=== PATIENT | male | born 1955 | race Caucasian/White ===

== ENCOUNTER → 2021-07-10 07:47 | Outpatient (CLI) | payer MEDICARE, SELFPAY ==
--- NOTE | ~2021-07-10 | US_ITS ---
EXAMINATION: US aorta [facility] DATE: 07/10/2021 08:07 INDICATION: Encounter for screening for cardiovascular disorder is good vascular risk factors of diab etes, hypertension and prior smoking. TECHNIQUE: Grayscale, color Doppler, and pulsed Doppler images of the aorta and common iliac arteries were obtained. COMPARISON: None. FINDINGS: The proximal aorta measures 2.1 cm in maximal AP diameter. The mid aorta measures 1.7 cm. The distal aorta measures 1.6 cm. The right common iliac artery measures 1.1 cm. The left common iliac artery me asures 1.2 cm. IMPRESSION: 1. Normal caliber abdominal aorta. Reviewed, dictated and finalized at location A. 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
== END ==
PROVIDERS: PCP Family Medicine; Visit Provider Family Medicine
DX: Z13.6 Encounter for screening for cardiovascular disorders (principal); F17.210 Nicotine dependence, cigarettes, uncomplicated
CPT/HCPCS: 76706

== ENCOUNTER → 2021-07-15 11:14 | Outpatient (CLI) | payer MEDICARE, SELFPAY ==
--- NOTE | ~2021-07-15 | CT_ITS ---
EXAMINATION: CT lung screening DATE: 07/15/2021 11:32 INDICATION: Personal history of nicotine dependence, prior smoker with 40 pack year history TECHNIQUE: Computed tomography (CT) of the chest was performed without intravenous contrast. The dose -length product (DLP) was 73.82 mGy-cm. Automated exposure control and iterative reconstruction techn ique were employed. COMPARISON: None FINDINGS: There is mild emphysema. No suspicious pulmonary nodule is identified. The lungs are free o f acute opacities. There is no pleural effusion or pneumothorax. Bilateral gynecomastia is noted. No pathologically enlarged thoracic lymph nodes are identified. The heart size is normal. There is calci fied coronary artery atherosclerosis. There is mild thoracic spondylosis. IMPRESSION: 1. Lung-RADS category 1: Negative. Continue annual screening with noncontrast low-dose chest CT in 12 months. Reviewed, dictated and finalized at location A. 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 Lung-RADS category 1: Negative. Continue annual screening with noncontrast l ow-dose chest CT in 12 months.
== END ==
PROVIDERS: PCP Family Medicine; Visit Provider Family Medicine
DX: Z12.2 Encounter for screening for malignant neoplasm of respiratory organs (principal); Z87.891 Personal history of nicotine dependence
CPT/HCPCS: 71271

== ENCOUNTER 2022-02-10 13:21 | Outpatient (CLI) | payer MEDICARE, SELFPAY ==
[2022-02-10 19:00] LABS: Anion Gap 10 mmol/L (8-16); Blood Urea Nitrogen 20 mg/dL (9-20); Carbon Dioxide 27 mmol/L (22-30); Chloride 102 mmol/L (98-107); Estimated Glomerular Filt Rate > 60; Glucose 166 mg/dL (65-110); Sodium 139 mmol/L (137-145)
== END 2022-02-10 13:22 | disposition home or self-care (01) ==
LOC: ANHGOSHLAB 13:24
PROVIDERS: PCP Family Medicine; Visit Provider Family Medicine
DX: E87.5 Hyperkalemia (principal)
CPT/HCPCS: 36415; 80048

== ENCOUNTER 2022-06-02 14:41 | Outpatient (CLI) | payer MEDICARE, SELFPAY ==
[2022-06-02 20:19] LABS: Hemoglobin A1C 6.4 % (<5.7)
[2022-06-02 21:45] LABS: Alanine Aminotransferase 19 U/L (6-50); Albumin Level 4.6 g/dL (3.5-5.1); Alkaline Phosphatase 58 U/L (38-126); Anion Gap 3 mmol/L (8-16); Aspartate Amino Transferase 33 U/L (17-59); Bilirubin,Total 0.4 mg/dL (0.2-1.3); Blood Urea Nitrogen 28 mg/dL (9-20); Calcium 9.4 mg/dL (8.4-10.2); Carbon Dioxide 31 mmol/L (22-30); Chloride 101 mmol/L (98-107); Estimated Glomerular Filt Rate > 60; Glucose 127 mg/dL (65-110); Potassium 4.5 mmol/L (3.4-5.0); Sodium 135 mmol/L (137-145)
== END 2022-06-02 14:42 | disposition home or self-care (01) ==
LOC: ANHGOSHLAB 14:43
PROVIDERS: PCP Family Medicine; Visit Provider Family Medicine
DX: E11.9 Type 2 diabetes mellitus without complications (principal); I10 Essential (primary) hypertension
CPT/HCPCS: 36415; 80053; 83036

== ENCOUNTER → 2023-03-05 10:11 | Outpatient (CLI) | payer MEDICARE, SELFPAY ==
--- NOTE | ~2023-03-05 | CT_ITS ---
CT Scan of the Chest without Contrast: Clinical Indication: Lung cancer screening, personal history of nicotine dependence Technique: Contiguous sections were acquired throughout the chest without intravenous contrast. Dose reduction technique was used on this scan by utilizing automated exposure control and iterative recon struction technique. The dose-length product (DLP) was 67.88 mGy-cm. COMPARISON: 07/15/2021 Findings: There is no evidence of any significant mediastinal, hilar or axillary lymphadenopathy. The mediastin al soft tissues appear normal. There is no evidence of pleural or pericardial effusion. The lungs are clear. No pulmonary nodules or infiltrates are noted. Images through the upper abdomen reveal no abnormalities. Impression: Lung RADS 1: Negative. 12 month follow-up screening CT advised. Reviewed, dictated and finalized at location . Impression: Lung RADS 1: Negative. 12 month follow-up screening CT advised.
== END ==
PROVIDERS: PCP Family Medicine; Visit Provider Family Medicine
DX: Z12.2 Encounter for screening for malignant neoplasm of respiratory organs (principal); Z87.891 Personal history of nicotine dependence
CPT/HCPCS: 71271

== ENCOUNTER 2023-03-09 13:19 | Outpatient (CLI) | payer MEDICARE, SELFPAY ==
[2023-03-09 18:45] LABS: Alanine Aminotransferase 20 U/L (6-50); Albumin Level 4.3 g/dL (3.5-5.1); Alkaline Phosphatase 56 U/L (38-126); Anion Gap 6 mmol/L (8-16); Aspartate Amino Transferase 27 U/L (17-59); Bilirubin,Total 0.5 mg/dL (0.2-1.3); Blood Urea Nitrogen 27 mg/dL (9-20); Calcium 9.4 mg/dL (8.4-10.2); Carbon Dioxide 31 mmol/L (22-30); Chloride 94 mmol/L (98-107); Estimated Glomerular Filt Rate > 60; Glucose 217 mg/dL (65-110); Sodium 131 mmol/L (137-145)
== END 2023-03-09 13:20 | disposition home or self-care (01) ==
LOC: ANHGOSHLAB 13:21
PROVIDERS: PCP Family Medicine; Visit Provider Family Medicine
DX: E78.5 Hyperlipidemia, unspecified (principal); I10 Essential (primary) hypertension; Z79.899 Other long term (current) drug therapy
CPT/HCPCS: 36415; 80053

== ENCOUNTER 2023-07-29 13:21 | Outpatient (CLI) | payer MEDICARE, SELFPAY ==
[2023-07-29 16:07] LABS: Alanine Aminotransferase 19 U/L (6-50); Albumin Level 4.7 g/dL (3.5-5.1); Alkaline Phosphatase 72 U/L (38-126); Anion Gap 7 mmol/L (8-16); Aspartate Amino Transferase 38 U/L (17-59); Bilirubin,Total 0.5 mg/dL (0.2-1.3); Blood Urea Nitrogen 25 mg/dL (9-20); Calcium 9.5 mg/dL (8.4-10.2); Carbon Dioxide 27 mmol/L (22-30); Chloride 101 mmol/L (98-107); Estimated Glomerular Filt Rate > 60; Glucose 123 mg/dL (65-110); Potassium 4.5 mmol/L (3.4-5.0); Sodium 135 mmol/L (137-145)
[2023-07-29 16:45] LABS: Hemoglobin A1C 6.1 % (<5.7)
== END 2023-07-29 13:22 | disposition home or self-care (01) ==
LOC: ANHGOSHLAB 13:22
PROVIDERS: PCP Family Medicine; Visit Provider Family Medicine
DX: I10 Essential (primary) hypertension (principal); E11.9 Type 2 diabetes mellitus without complications
CPT/HCPCS: 36415; 80053; 83036

== ENCOUNTER 2023-11-17 11:31 | Outpatient (CLI) | payer MEDICARE, SELFPAY ==
--- NOTE | ~2023-11-17 | MR_ITS ---
EXAMINATION: MR lumbar spine wo con DATE: 11/17/2023 12:15 INDICATION: Other specified dorsopathies, lumbar region. Left leg and buttock pain. TECHNIQUE: Magnetic resonance imaging (MRI) of the lumbar spine was performed without intravenous con trast. Sequences included sagittal T2-weighted FSE, sagittal T2-weighted FS FSE, sagittal T1-weighted FSE, and axial T2-weighted FSE. COMPARISON: None FINDINGS: There is 8 degrees levocurvature of lumbar spine. There is 3 mm anterolisthesis of L4 on L5 . There is mild chronic anterior wedging of L1 vertebral body. There are Schmorl's nodes at multiple levels. There is mildly decreased disc height at L1-L2, L2-L3, L3-L4, and L4-L5 and moderately decrea sed disc height at L5-S1. Osseous central spinal canal is developmentally small. The distal spinal co rd signal intensity is normal. The conus medullaris is at L1. The following disc levels are specifica lly discussed: L1-L2: The disc is bulging. There is mild bilateral facet joint osteoarthritis. There is mild bilater al neural foraminal stenosis. There is mild central canal stenosis. L2-L3: The disc is bulging. There is moderate bilateral facet joint osteoarthritis. There is mild corey ateral neural foraminal stenosis. There is mild central canal stenosis. L3-L4: The disc is bulging. There is moderate bilateral facet joint osteoarthritis. There is mild ocrey ateral neural foraminal stenosis. There is mild central canal stenosis. L4-L5: The disc is bulging and has an annular fissure. There is severe bilateral facet joint osteoart hritis. There is moderate bilateral neural foraminal stenosis. There is moderate central canal stenos is. L5-S1: The disc is bulging and has an annular fissure. There is moderate right and severe left facet joint osteoarthritis. There is moderate bilateral neural foraminal stenosis. There is mild central ca nal stenosis. IMPRESSION: 1. Moderate lumbar spondylosis. Reviewed, dictated and finalized at location A.
== END 2023-11-17 11:32 ==
LOC: GOSHIMG 11:32
PROVIDERS: PCP Family Medicine; Visit Provider Student in an Organized Health Care Education/Training Program
DX: M53.86 Other specified dorsopathies, lumbar region (principal); M47.896 Other spondylosis, lumbar region
CPT/HCPCS: 72148

== ENCOUNTER 2024-01-06 06:46 | Day surgery (SDC) | payer MEDICARE, SELFPAY ==
[2023-12-27 11:53] VITALS: BMI 25.2
[2023-12-29 13:47] VITALS: BMI 24.9
[2024-01-06 07:10] VITALS: BMI 23.5
[2024-01-06 07:12] VITALS: BP 129/72; PULSE 79; RESP 16; TEMP 36.4; O2SAT 100
[2024-01-06 07:25] LABS: Glucose Point of Care 127 mg/dl (65-105)
--- NOTE | 2024-01-06 07:32 | PM.HPGS ---
History of Present Illness History of Present Illness Consent: Risks, benefits, and alternatives have been discussed and questions answered. Patient agrees to proceed with procedure. Chief complaint: Neoplasm Screening Narrative: Deep Valdez is a 68 year old male presents for screening colonoscopy. Patient's current weight appetite and bowel movements are normal. He denies abdominal pain. Patient has had no bleeding. Family history noncontributory. Previous colonoscopy 10 years ago was unremarkable. Review of Systems Review of Systems: All systems reviewed & are unremarkable except as noted in HPI and below PMFSH Past Medical History Medical History Acute trigeminal herpes zoster 12/18 Cataract 2018 Dyslipidemia Essential (primary) hypertension Type 2 diabetes mellitus without complication, without long-term current use of insulin Surgical History Surgical History [place] teeth extracted (~1977) Family History Family History Other Diabetes mellitus Social History Social History (Updated 10/29/23 @ 13:26 by Sita Wakefield MA) Smoking packs per day: 1 Smoking cigarettes per day: 20.0 Years smoked: 48 Smoking pack-years: 48.00 Smoking status: Former smoker Tobacco type: cigarettes Second hand tobacco smoke exposure: No Smoking end date: 10/29/17 Alcohol intake: current Drinks per week: 21 Alcohol use details: 3 BEERS A DAY Substance use: never Substance use type: does not use Do You Feel Safe in your Home?: Yes Lack of Transportation: No Lack of Food: Never True Current Housing: I Have Housing Concerned About Future Housing: No Difficulty Paying Gas/Electric Bills: No Difficulty Paying for Meds: No Currently Unemployed: No Education: High School Diploma/GED Difficulty w/ Childcare or Family Care: No Living arrangements: with family Occupation/Education: retired Gender identity (if verbalized by the patient): Male Sexual Orientation (if Verbalized by the Patient): Straight or Heterosexual Spiritual care concerns: No Agree to blood products: Yes Meds Home Medications and Allergies Home Medications Medication Instructions Recorded Confirmed Type fplkbdet-xk-idibo 300 mcg-K 60 1 tablet PO DAILY 08/02/19 01/06/24 History mcg-lycop 600 mcg-lutein 300 mcg tablet (Centrum Silver Men) vit C,E,zinc,copper-dadyk3j 250 1 cap PO DAILY 06/18/21 01/06/24 History mg-lutein 5 mg-zeaxanthin 1 mg capsule (Ocuvite Adult 50 Plus) cholecalciferol (vitamin D3) 50 50 mcg PO DAILY 07/29/23 01/06/24 History mcg (2,000 unit) tablet tramadol 50 mg tablet See Rx Instructions PO Q6H PRN 11/16/23 01/06/24 Rx pain #20 tabs atorvastatin 10 mg tablet (Lipitor) 10 mg PO QHS #90 tabs 12/01/23 01/06/24 Rx lisinopril 10 1 tablet PO DAILY #90 tabs 12/01/23 01/06/24 Rx mg-hydrochlorothiazide 12.5 mg tablet metformin 500 mg tablet,extended 1,000 mg PO DAILY #180 tabs 12/01/23 01/06/24 Rx release 24 hr Allergies Allergy/AdvReac Type Severity Reaction Status Date / Time No Known Allergies Allergy Verified 01/06/24 07:03 Vital Signs Vital Signs - 24 hr 01/06/24 07:12 Temperature 97.6 F Pulse Rate 79 Respiratory Rate 16 Blood Pressure 129/72 Pulse Oximetry 100 Oxygen Delivery Room Air Exam Narrative: Physical exam reveals patient to be alert. Vital signs stable. HEENT exam is unremarkable. Patient is anicteric. Lungs are clear to auscultation and percussion. Heart is without murmur or extra sounds. Abdomen bowel sounds are present soft nontender with no organomegaly. Digital external rectal exam normal. Assessment and Plan Assessment and plan (1) Screening for colon cancer: Code(s): Z12.11 - Encounter for screen
--- NOTE | 2024-01-06 08:47 | WPDANESEPPF ---
Anes - Initial Pre Proc Eval Procedure: Operation Date: 01/06/24 08:30 Proposed Procedures p Screening Colonoscopy - Jeffry Raya MD Date/Time: 01/06/24 08:47 Surgeon: Jeffry Raya MD Pre Op Diagnosis: Neoplasm Screening Patient Data Age: 68 Gender: M Height: 1.68 m Weight: 66 kg Last Vital Signs Temp 36.4 C 01/06/24 07:12 Pulse 79 01/06/24 07:12 Resp 16 01/06/24 07:12 BP 129/72 01/06/24 07:12 Pulse Ox 100 01/06/24 07:12 O2 Del Method Room Air 01/06/24 07:12 Allergies Allergy/AdvReac Type Severity Reaction Status Date / Time No Known Allergies Allergy Verified 01/06/24 07:03 Home Medications Medication Instructions Recorded Confirmed Type fbyjjram-cc-ktrel 300 mcg-K 60 1 tablet PO DAILY 08/02/19 01/06/24 History mcg-lycop 600 mcg-lutein 300 mcg tablet (Centrum Silver Men) vit C,E,zinc,copper-vzdii1f 250 1 cap PO DAILY 06/18/21 01/06/24 History mg-lutein 5 mg-zeaxanthin 1 mg capsule (Ocuvite Adult 50 Plus) cholecalciferol (vitamin D3) 50 50 mcg PO DAILY 07/29/23 01/06/24 History mcg (2,000 unit) tablet tramadol 50 mg tablet See Rx Instructions PO Q6H PRN 11/16/23 01/06/24 Rx pain #20 tabs atorvastatin 10 mg tablet (Lipitor) 10 mg PO QHS #90 tabs 12/01/23 01/06/24 Rx lisinopril 10 1 tablet PO DAILY #90 tabs 12/01/23 01/06/24 Rx mg-hydrochlorothiazide 12.5 mg tablet metformin 500 mg tablet,extended 1,000 mg PO DAILY #180 tabs 12/01/23 01/06/24 Rx release 24 hr Laboratory Tests 01/06/24 07:21 POC Capillary Glucose 127 H mg/dl (65-105) Patient hx anesthesia problems: none Family hx anesthesia problems: none Results Review: All pre-operative results and documents have been reviewed as part of the pre-operative evaluation. [facility] Past Medical History Medical History Acute trigeminal herpes zoster 12/18 Cataract 2018 Dyslipidemia Essential (primary) hypertension Type 2 diabetes mellitus without complication, without long-term current use of insulin Surgical History Surgical History [place] teeth extracted (~1977) Family History Family History Other Diabetes mellitus Social History Social History Smoking packs per day: 1 Smoking cigarettes per day: 20.0 Years smoked: 48 Smoking pack-years: 48.00 Smoking status: Former smoker Tobacco type: cigarettes Second hand tobacco smoke exposure: No Smoking end date: 10/29/17 Alcohol intake: current Drinks per week: 21 Alcohol use details: 3 BEERS A DAY Substance use: never Substance use type: does not use Do You Feel Safe in your Home?: Yes Lack of Transportation: No Lack of Food: Never True Current Housing: I Have Housing Concerned About Future Housing: No Difficulty Paying Gas/Electric Bills: No Difficulty Paying for Meds: No Currently Unemployed: No Education: High School Diploma/GED Difficulty w/ Childcare or Family Care: No Living arrangements: with family Occupation/Education: retired Gender identity (if verbalized by the patient): Male Sexual Orientation (if Verbalized by the Patient): Straight or Heterosexual Spiritual care concerns: No Agree to blood products: Yes Anes - Eval Final PreProcedure Day of Procedure 01/06/24 08:47 Patient weight: normal Heart: regular rate and rhythm Lungs: decreased breath sounds Airway: Mallampati scale class II Neurological: alert and oriented Last oral intake: >/= 8 hours ASA classification: III Emergent: no Anesthetic plan: proceed Anesthesia type and monitoring: general GIVS and standard monitoring Results Review: All pre-operative results and documents have been reviewed as part of the pre-operative evaluation. Inf
[2024-01-06] MEDS: LACTATED RINGERS 1,000 ML 150 ML IV CONT (08:51)
[2024-01-06 09:14] VITALS: BP 117/73; PULSE 74; RESP 16; O2SAT 100
--- NOTE | 2024-01-06 09:22 | WPDANESPN ---
Anes - Prog Note Post-Op Date/Time: 01/06/24 09:22 Cardiovascular status: normal Respiratory status: normal Airway patency: baseline Mental status: baseline Post-Op hydration status: normal Vital Signs: Last Vital Signs Temp 36.4 C 01/06/24 07:12 Pulse 74 01/06/24 09:14 Resp 16 01/06/24 09:14 BP 117/73 01/06/24 09:14 Pulse Ox 100 01/06/24 09:14 O2 Del Method Room Air 01/06/24 09:14 Pain Score (VAS): 0 I/O: Intake & Output 01/05/24 01/06/24 01/06/24 23:59 07:59 15:59 Intake Total 200 Balance 200 01/06/24 07:21 POC Capillary Glucose 127 H Patient Feedback: Patient satisfied with anesthetic care.
[2024-01-06 09:24] VITALS: BP 128/71; PULSE 73; RESP 17; O2SAT 100
[2024-01-06 09:34] VITALS: BP 131/74; PULSE 65; RESP 16; O2SAT 100
== END 2024-01-06 09:42 | disposition home or self-care (01) ==
PROVIDERS: PCP Family Medicine; Visit Provider Internal Medicine Gastroenterology
PROC: 0DJD8ZZ Inspection of Lower Intestinal Tract, Via Natural or Artificial Opening Endoscopic (ICD-10-PCS; CPT 45378; principal; 2024-01-06 08:30)
DX: Z12.11 Encounter for screening for malignant neoplasm of colon (principal); K64.8 Other hemorrhoids
CPT/HCPCS: 45378

== ENCOUNTER 2024-01-12 10:15 | Outpatient (RCR) | payer MEDICARE, SELFPAY ==
--- NOTE | 2023-11-05 17:01 | OPREHPOC ---
Outpatient Therapy Plan of Care This is a Multidisciplinary Plan of Care that may contain components documented by all disciplines (PT, OT, and ST.) PT Problem 1 PT Problem #1 Knowledge Deficit PT Goal 1 Goal Patient will be independent with HEP for stretching/mobilization Target Visit 4 PT Problem 2 PT Problem #2 Impaired Gait PT Goal 1 Goal Patient will demonstrate improved terminal stance bilaterally with improved L terminal stance and stride Target Visit 6 PT Problem 3 PT Problem #3 Impaired Flexibility PT Goal 1 Goal Demonstrate minimal hamstring restriction L LE with no sciatic type pain on flossing stretch PT Goal 2 Goal Improve L hip extension to 10 degrees to allow for terminal stance of gait Target Visit 6 PT Goal 1 Goal Improve R hip abduction to 30+ degrees to allow for reduced hip mobility restriction with stepping and foot clearence and improved mounting of bicycle Target Visit 8
--- NOTE | 2023-11-05 17:01 | PTOPEVAL1 ---
Assessment and note entered by Victor Hugo Pabon, PT Evaluation Information Assessment Status Evaluation Diagnosis Strain of left hip muscle Onset September 2023 Subjective Information Reports that he did something to himself but cannot remember what. Feels that he has seen some improvement at times but occasionally has regression. Pain is worse as the day goes on. Heat or ice does not seem to help. Muscle relaxers have not helped but Motrin has. Going up and down stairs give him a lot of trouble. He has never had this pain before. 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 Reported Pain Level Pain Score 0: Self Report Assessment PT Clinical Summary Patient presents with rigidity of hips. Symptoms consistent with sciatica at this time as they are present in both glut complex and lateral calf. Will benefit from comprehensive therapy program to address hip mobility, core strength, and gait training. No concerns at this time for structural damage or persistent injury. Plan of Care Interventions Gait Training,Hot Pack/Cold Pack,Manual Therapy, Mechanical Traction,Neuro Re-education,Therapeutic Activities,Therapeutic Exercise PT Services Indicated Yes Treatment Frequency and 1x/week for 5 visits Duration These treatments will address the objective and functional deficits as defined above. The patient will be advanced safely and appropriately in order for the patient to progress towards his/her prior level of function. Additional exercises will be introduced and as well as a comprehensive home exercise program upon discharge, if needed, ?to ensure carryover of functional gains achieved in the clinic. This treatment plan has been reviewed and agreement upon by the patient.
--- NOTE | 2023-12-07 17:01 | OPREHPOC ---
Outpatient Therapy Plan of Care This is a Multidisciplinary Plan of Care that may contain components documented by all disciplines (PT, OT, and ST.) PT Problem 1 PT Problem #1 Knowledge Deficit PT Goal 1 Goal Patient will be independent with HEP for stretching/mobilization Target Visit 4 Progress Met PT Problem 2 PT Problem #2 Impaired Gait PT Goal 1 Goal Patient will demonstrate improved terminal stance bilaterally with improved L terminal stance and stride Target Visit 12 Progress Partially Met PT Problem 3 PT Problem #3 Impaired Flexibility PT Goal 1 Goal Demonstrate minimal hamstring restriction L LE with no sciatic type pain on flossing stretch Target Visit 12 Progress Partially Met PT Goal 2 Goal Improve L hip extension to 10 degrees to allow for terminal stance of gait Target Visit 12 Progress Met PT Goal 1 Goal Improve R hip abduction to 30+ degrees to allow for reduced hip mobility restriction with stepping and foot clearence and improved mounting of bicycle Target Visit 12 Progress Partially Met
--- NOTE | 2023-12-07 17:02 | PTOPPROG ---
Assessment and note entered by Victor Hugo Pabon, PT Evaluation Information Assessment Status Progress Diagnosis Strain of left hip muscle Onset September 2023 Subjective Information Patient reports that overall he does not feel much different. He has returned to some biking and mowing grass but had some pain after last time. He can usually sit as long as he needs to. Pain still comes with standing and walking activity. Feels that he needs to continue to work on things as he does not want to consider surgery at this time. Assessment PT Clinical Summary Patient is currently no seeing exceptional progress with exercise at this time. He has been improving slightly and we have seen some strength and mobility improvement overall. At this point with the findings of his MRI indicating structural damage, We need to continue to emphasize hip mobility and core strength for conservative management with plan to follow up with MD and neurologist to discuss need for changes to improve care home outcome. Plan of Care Interventions Gait Training,Hot Pack/Cold Pack,Manual Therapy, Mechanical Traction,Neuro Re-education,Therapeutic Activities,Therapeutic Exercise PT Services Indicated Yes Treatment Frequency and 2x/week for 8 visits Duration These treatments will address the objective and functional deficits as defined above. The patient will be advanced safely and appropriately in order for the patient to progress towards his/her prior level of function. Additional exercises will be introduced and as well as a comprehensive home exercise program upon discharge, if needed, ?to ensure carryover of functional gains achieved in the clinic. This treatment plan has been reviewed and agreement upon by the patient.
--- NOTE | 2024-01-12 10:46 | PTOPDC ---
Assessment and note entered by Magy Mello, PT, DPT Evaluation Information Assessment Status Discharge Diagnosis Strain of left hip muscle ICD-10 Condition Codes (PT) Pain in right hip M25.551 Onset September 2023 Subjective Information Pt states his hip is feeling about the same since starting therapy. He states he does his exercises about 25% of the time. He states his pain usually starts in the afternoon when he is up and doing his daily tasks. He still reports pain as 8/10 at the worst. Reported Pain Level Pain Score 0: Self Report Assessment PT Clinical Summary Pt has completed 13 visits of skilled therapy, he reports minimal improvement in symptoms since starting. He also reports poor compliance with his HEP. Today his HEP was updated to exercises with simple set up to hopefully increase compliance, also focused on gait training. Pt will be d/c'ed at this time per his request.
== END 2024-01-12 11:11 | disposition home or self-care (01) ==
LOC: ANHGOSHPT 10:15
PROVIDERS: PCP Family Medicine; Visit Provider Student in an Organized Health Care Education/Training Program
DX: S76.012D Strain of muscle, fascia and tendon of left hip, subsequent encounter (principal)
CPT/HCPCS: 97110; 97112; 97116; 97140; 97161; 97530

== ENCOUNTER 2024-02-03 14:14 | Outpatient (CLI) | payer MEDICARE, SELFPAY ==
[2024-02-03 18:46] LABS: Basophils Percent Auto 0.6 % (0.2-1.2); Eosinophils Percent Auto 0.3 % (0-4.4); Hematocrit 34.8 % (42.0-52.0); Hemoglobin 12.1 g/dL (14.0-18.0); Immature Granulocyte Absolute 0.02 K/mm3 (0.00-0.031); Immature Granulocyte Percent A 0.3 % (0-0.5); Lymphocytes Absolute Auto 1.59 K/mm3 (0.9-3.2); Lymphocytes Percent Auto 25.4 % (18.3-44.2); Mean Corpuscular HGB Conc 34.8 g/dl (32-36); Mean Corpuscular Hemoglobin 33.2 pg (26-34); Mean Corpuscular Volume 95.3 fl (80-100); Monocytes Absolute Auto 0.6 K/mm3 (0.1-0.6); Monocytes Percent Auto 8.9 % (2.6-8.5); Neutrophils Percent Auto 64.5 % (45.5-73.1); Platelet Count Result 325 k/mm3 (150-375); Red Blood Count 3.65 M/mm3 (4.6-6.20); Red Cell Distribution Width 12.3 % (11.5-14.5); White Blood Count 6.3 K/mm3 (4.5-10.0)
[2024-02-03 18:59] LABS: Alanine Aminotransferase 21 U/L (6-50); Albumin Level 4.7 g/dL (3.5-5.1); Alkaline Phosphatase 69 U/L (38-126); Anion Gap 11 mmol/L (4-12); Aspartate Amino Transferase 33 U/L (17-59); Bilirubin,Total 0.7 mg/dL (0.2-1.3); Blood Urea Nitrogen 31 mg/dL (9-20); Calcium 9.8 mg/dL (8.4-10.2); Carbon Dioxide 28 mmol/L (22-30); Chloride 92 mmol/L (98-107); Cholesterol 162 mg/dL (0-200); Estimated Glomerular Filt Rate 60; Glucose 141 mg/dL (65-110); HDL Direct 70 mg/dL; Potassium 5.2 mmol/L (3.4-5.0); Sodium 131 mmol/L (137-145); Triglycerides 92 mg/dL (<150)
[2024-02-03 19:10] LABS: LDL Cholesterol Direct 72 mg/dL
[2024-02-03 19:20] LABS: Hemoglobin A1C 6.2 % (<5.7)
[2024-02-03 19:24] LABS: Vitamin D 25 Hydroxy 64.1 ng/mL
[2024-02-03 19:25] LABS: Creatinine Urine 30.9 mg/dL
[2024-02-03 19:29] LABS: Prostate Specific Antigen 0.9 ng/mL (< OR = 4.0)
[2024-02-03 19:30] LABS: MALB Creatinine Ratio 146.9 mg/g (0-30); Microalbumin Urine Random 45.4 mg/L (0-16.7)
[2024-02-03 19:38] LABS: Thyroid Stimulating Hormone Reflex 0.554 uIU/mL (0.465-4.68)
== END 2024-02-03 14:15 | disposition home or self-care (01) ==
LOC: ANHGOSHLAB 14:15
PROVIDERS: PCP Family Medicine; Visit Provider Family Medicine
DX: E11.9 Type 2 diabetes mellitus without complications (principal); Z00.00 Encounter for general adult medical examination without abnormal findings; E78.5 Hyperlipidemia, unspecified; I10 Essential (primary) hypertension; E53.8 Deficiency of other specified B group vitamins; E55.9 Vitamin D deficiency, unspecified; Z12.5 Encounter for screening for malignant neoplasm of prostate
CPT/HCPCS: 36415; 80053; 80061; 82043; 82306; 82607; 83036; 84153; 84443; 85025; G0103

== ENCOUNTER 2024-08-28 07:48 | Outpatient (CLI) | payer MEDICARE, SELFPAY ==
--- OUTSIDE RECORDS SUMMARY | 2024-08-28 07:59 | XMS_ITS | Encounter Summary ---
Author Organization [facility] Address [address] [place] [address] Care Team Providers Care Pharmacy Resource Tech Name Role Phone Heber Calderon MD Primary Care Provider [phone] Encounter Details Date Type Department Care Team (Late st Contact Info) Description 12/13/2023 Lab Requisition [facility] - DermPath Lab [address] [place] [phone] Eusebio De Leon MD [facility] DERMATOLOGY [address] [place] [phone] Neoplasm of uncertain behavior of skin Social History Tobacco Use Types Packs/Day Years Used Date Smoking Tobacco: Never Assessed Sex and Gender Information Value Date Recorded Sex Assigned at Not on file Gender Identity Not on file Sexual Orientation Not on file documented as of this encounter Plan of Treatment Not on file documented as of this encounter Procedures Procedure Name Priority Date/Time Associated Diagnosis Comments DERMATOPATHOLOGY Routine 12/13/2023 12:0 0 AM CDT Neoplasm of uncertain behavior of skin documented in this encounter Results * DERMATOPATHOLOGY (12/13/2023 12:00 AM CDT) Case Report Dermatopathology Report Case: [id number] Authorizing Provider: Euseibo De Leon MD Collected: 12/13/2023 12:00 AM Ordering Location: [facility] Physician [facility] - Received: 12/16/2023 01:40 PM DermPath Lab Pathologist: Lizzie Hurst MD Specimen: Skin, left medial trapezial neck 4 4:32 PM CDT DERMATOPATHOLOGY LABORATORY Final Diagnosis Specimen A. SKIN, left medial trapezial neck: SUPERFICIAL (FOCALLY INVASIVE) SQUAMOUS CELL CARCINOMA ARISING IN A HYPERTROPHIC ACTINIC KERATOSIS (C44.42) 4 4:32 PM T DERMATOPATHOLOGY LABORATORY Clinical History BCC 4 4:32 PM CDT DERMATOPATHOLOGY LABORATORY Gross Description Specimen A: Received is one formalin filled container labeled with the patient's name and designated left medial trapezial neck. The specimen consists of a shave biopsy measuring 6x5x1 mm. Jar 0. 4 4:32 PM T DERMATOPATHOLOGY LABORATORY Microscopic Description Specimen A. SKIN, left medial trapezial neck: Sections reveal parakeratosis, acanthosis and keratinocyte dysmaturation which is most prominent in the lower epidermis. Focal nests are present in the dermis. 4:32 PM T DERMATOPATHOLOGY LABORATORY Disclaimer An external and internal positive and negative controls are appropriate for the histochemical, immunohistochemical and immunofluorescence stain(s) in this case (if any), except where stated explicitly. The performance characteristics of the stain(s) cited in this report were developed and its performance characteristic determined by the Dermatopathology Laboratory at [facility], directed by Dr. Janett Hurst. These tests need not be, and therefore are not, approved by the [place] Food and Drug Administration. The tests are used for clinical purposes. Billing Codes Specimen Charges Stain Charges 99574 1 4 4:32 PM CDT DERMATOPATHOLOGY LABORATORY Embedded Images 4 4:32 PM CDT DERMATOPATHOLOGY LABORATORY Pathology/Cytolog y TISSUE SPECIMEN FROM SKIN / Unknown 12/13/2023 12/16/2023 1:40 PM CDT Eusebio De Leon MD LAB - PATHOLOGY/CYTO LOGY ORDERABLES DERMATOPATHOLOGY LABORATORY [facility] - Department of Dermatology [address], [address] [phone] documented in this encounter Visit Diagnoses Diagnosis Neoplasm of uncertain behavior of skin documented in this encounter Care Teams Pharmacy Resource Tech Relationship Specialty Start Date End Date Heber Calderon MD [address] [place] [address] PCP - General 10/14/10 documented as of this encounter
--- OUTSIDE RECORDS SUMMARY | 2024-08-28 07:59 | XMS_ITS | Encounter Summary ---
Author Organization [facility] Address [address] [place] [address] Care Team Providers Care Manager Wound Name Role Phone Heber Calderon MD Primary Care Provider [phone] Encounter Details Date Type Department Care Team (Late st Contact Info) Description 03/14/2024 Lab Requisition [facility] - DermPath Lab [address] [place] [phone] Eusebio De Leon MD [facility] DERMATOLOGY [address] [place] [phone] Squamous cell carcinoma of skin of scalp and neck Social History Tobacco Use Types Packs/Day Years Used Date Smoking Tobacco: Never Assessed Sex and Gender Information Value Date Recorded Sex Assigned at Not on file Gender Identity Not on file Sexual Orientation Not on file documented as of this encounter Plan of Treatment Not on file documented as of this encounter Procedures Procedure Name Priority Date/Time Associated Diagnosis Comments DERMATOPATHOLOGY Routine 03/14/2024 12:0 0 AM CDT Squamous cell carcinoma of skin of scalp and neck documented in this encounter Results * DERMATOPATHOLOGY (03/14/2024 12:00 AM CDT) Case Report Dermatopathology Report Case: [id number] Authorizing Provider: Eusebio De Leon MD Collected: 03/14/2024 12:00 AM Ordering Location: [facility] Physician [facility] - Received: 03/15/2024 11:23 AM DermPath Lab Pathologist: Natali Chiu MD Specimen: Skin, left medial trapezial neck 1:53 PM CDT DERMATOPATHOLOGY LABORATORY Final Diagnosis Specimen A. SKIN, left medial trapezial neck: DERMAL SCAR RESIDUAL SQUAMOUS CELL CARCINOMA NOT IDENTIFIED (L90.5) 1:53 PM CDT DERMATOPATHOLOGY LABORATORY Clinical History SCC Please check margins 1:53 PM CDT DERMATOPATHOLOGY LABORATORY Gross Description Specimen A: Received is one formalin filled container labeled with the patient's name and designated left medial trapezial neck. The specimen consists of a non-oriented ellipse of skin measuring 68r06s1 mm. The epidermal surface is unremarkable. The margin is inked green. The 12 o'clock and 6 o'clock tips are submitted in cassette 1. The remainder of the ellipse is serially sectioned and submitted in cassette 2-3. Jar 0. 1:53 PM CDT DERMATOPATHOLOGY LABORATORY Microscopic Description Specimen A. SKIN, left medial trapezial neck: There are fibroblasts and collagen bundles oriented parallel to the skin surface. There are elongated blood vessels, some of which are oriented perpendicular to the skin surface. No residual squamous cell carcinoma is identified. 1:53 PM CDT DERMATOPATHOLOGY LABORATORY Disclaimer An external and internal positive and negative controls are appropriate for the histochemical, immunohistochemical and immunofluorescence stain(s) in this case (if any), except where stated explicitly. The performance characteristics of the stain(s) cited in this report were developed and its performance characteristic determined by the Dermatopathology Laboratory at [facility], directed by Dr. Janett Hurst. These tests need not be, and therefore are not, approved by the [place] Food and Drug Administration. The tests are used for clinical purposes. Billing Codes Specimen Charges Stain Charges 24535 1 1:53 PM CDT DERMATOPATHOLOGY LABORATORY Embedded Images 1:53 PM CDT DERMATOPATHOLOGY LABORATORY Pathology/Cytolog y TISSUE SPECIMEN FROM SKIN / Unknown 03/14/2024 03/15/2024 11:23 AM CDT Eusebio De Leon MD LAB - PATHOLOGY/CYTO LOGY ORDERABLES DERMATOPATHOLOGY LABORATORY [facility] Department of Dermatology [place] [address] [facility], [address]rd [address] [phone] documented in this encounter Visit Diagnoses Diagnosis Squamous cell carcinoma of skin of scalp and neck Squamous cell carcinoma of scalp and skin of neck documented in this encounter Care Teams Manager Wound Relationship Specialty Start Date End Date Heber Calderon MD [address] [place] [address] PCP - General 10/14/10 documented as of this encounter
--- OUTSIDE RECORDS SUMMARY | 2024-08-28 07:59 | XMS_ITS | Clinical Summary ---
Author Organization [facility] Address [address] [place] [address] Care Team Providers Care Food Preparation Kitchen Aide Name Role Phone Heber Calderon MD Primary Care Provider [phone] Source Comments [facility],non-owned Affiliates and Associated Physician Practices is amultiple site organization consisting of ambulatory clinics and hospital sitesin [place], [place], [place] and [place]. This disclosure is being madepursuant to the Care Everywhere program and may not contain all information available regarding this patient. Last updated 18.[facility] Social History Tobacco Use Types Packs/Day Years Used Date Smoking Tobacco: Never Assessed Sex and Gender Information Value Date Recorded Sex Assigned at Not on file Gender Identity Not on file Sexual Orientation Not on file Plan of Treatment Health Maintenance Due Date Last Done Comments COLOGUARD (AGES 45-75) - COL ON CA SCREENING 1953 COLON MONITORING 1953 COLONOSCOPY - COLON CA SCREENING 1953 CT COLONOGRAPHY - COLON CA SCREENING 1953 Colorectal Cancer Screening 1953 FIT - COLON CA SCREENING 1953 FLEX SIG - COLON CA SCREENING 1953 LIPID TESTING 1953 HEPATITIS C SCREENING 04/18/1971 DTAP/TDAP/TD VACCINES (1 - Tdap) 1972 PNEUMOCOCCAL VACCINE 50+ (1 of 1 - PCV) 2003 ZOSTER VACCINE (1 of 2) 2003 COVID-19 VACCINE ( - 2023-2 5 season) 2024 INFLUENZA VACCINE (#1) 2024 DEPRESSION SCREENING 05/31/2024 MEDICARE AWV CALENDAR YEAR 2024 Respiratory Syncytial Virus (RSV) Vaccine Pt: or over 60 yrs (1 - 1-dose 75+ series) 2028 HEPATITIS B VACCINE Aged Out No longe r eligible based on patient's age to complete this topic HIB VACCINE Aged Out No longer eligi ble based on patient's age to complete this topic HPV VACCINE Aged Out No longer eligi ble based on patient's age to complete this topic MENINGOCOCCAL (Group B) VACC INE SHARED DECISION-MAKING Aged Out No longer eligibl e based on patient's age to complete this topic MENINGOCOCCAL GROUPS A/C/Y/W VACCINE Aged Out No longer eligible b ased on patient's age to complete this topic Care Teams Food Preparation Kitchen Aide Relationship Specialty Start Date End Date Heber Calderon MD [address] [place] [address] PCP - General 10/14/10
--- OUTSIDE RECORDS SUMMARY | 2024-08-28 07:59 | XMS_ITS | Encounter Summary ---
Author Organization [facility] Address [address] [place] [address] Care Team Providers Care Customer Energy Specialist Name Role Phone Heebr Calderon MD Primary Care Provider [phone] Encounter Details Date Type Department Care Team (Late st Contact Info) Description 09/30/2023 Lab Requisition [facility]ician [facility] - DermPath Lab [address] [facility] [place] [phone] Eusebio De Leon MD [facility] DERMATOLOGY [address] [place] [phone] Neoplasm of uncertain behavior of skin [...] Priority Date/Time Associated Diagnosis Comments DERMATOPATHOLOGY Routine 09/30/2023 12:0 0 AM CDT Neoplasm of uncertain behavior of skin documented in this encounter Results * DERMATOPATHOLOGY (09/30/2023 12:00 AM CDT) Case Report Dermatopathology Report Case: [id number] Authorizing Provider: Eusebio De Leon MD Collected: 09/30/2023 12:00 AM Ordering Location: [facility] Physician [facility] - Received: 10/01/2023 02:15 PM DermPath Lab Pathologist: Little Hassan MD Specimens: A) - Skin, left central malar cheek B) - Skin, right medial trapezial neck 4:49 PM [facility] DERMATOPATHOLOGY LABORATORY Final Diagnosis Specimen A. SKIN, left central malar cheek: SQUAMOUS CELL CARCINOMA, WELL DIFFERENTIATED (C44.329) Specimen B. SKIN, right medial trapezial neck: SQUAMOUS CELL CARCINOMA IN SITU, PRESENT AT THE BASE OF THE SPECIMEN (D04.4) (see microscopic description and comment) 4:49 PM [facility] DERMATOPATHOLOGY LABORATORY Clinical History A-B: SCC>. 4:49 PM [facility] DERMATOPATHOLOGY LABORATORY Gross Description Specimen A: Received is one formalin filled container labeled with the patient's name and designated left central malar cheek. The specimen consists of a shave biopsy measuring 7x6x2 mm. Jar 0. Specimen B: Received is one formalin filled container labeled with the patient's name and designated right medial trapezial neck. The specimen consists of a shave biopsy measuring 5x3x2 mm. Jar 0. 4:49 PM [facility] DERMATOPATHOLOGY LABORATORY Microscopic Description Specimen A. SKIN, left central malar cheek: Arising in the epidermis and extending into the dermis there are irregularly shaped aggregates of keratinocytes showing evidence of premature cornification. Specimen B. SKIN, right medial trapezial neck: The epidermis shows parakeratosis, full thickness disorderly maturation of keratinocytes, mitoses at different levels, and dyskeratotic cells. The lesion extends to the base of the biopsy. Additional deeper sections were obtained and reviewed. COMMENT: An invasive squamous cell carcinoma cannot be ruled out. 4:49 PM [facility] DERMATOPATHOLOGY LABORATORY Disclaimer An external and internal positive and negative controls are appropriate for the histochemical, immunohistochemical and immunofluorescence stain(s) in this case (if any), except where stated explicitly. The performance characteristics of the stain(s) cited in this report were developed and its performance characteristic determined by the Dermatopathology Laboratory at [facility], directed by Dr. Janett Hurst. These tests need not be, and therefore are not, approved by the [place] Food and Drug Administration. The tests are used for clinical purposes. Billing Codes Specimen Charges Stain Charges 78703 47586 1 1 4 4:49 PM CDT DERMATOPATHOLOGY LABORATORY Embedded Images 4 4:49 PM CDT DERMATOPATHOLOGY LABORATORY Pathology/Cytology TISSUE SPECIMEN FROM SKIN / Unknown 09/30/2023 10/01/2023 2:15 PM CDT Miscellaneous samples (specimen) TISSUE SPECIMEN FROM SKIN / Unknown 09/30/2023 10/01/2023 2:15 PM CDT Eusebio De Leon MD LAB - PATHOLOGY/CYTO LOGY ORDERABLES DERMATOPATHOLOGY LABORATORY [facility] - Department of Dermatology [facility] Medicine [address] [place] [address], [address] [phone] documented in this encounter Visit Diagnoses Diagnosis Neoplasm of uncertain behavior of skin documented in this encounter Care Teams Customer Energy Specialist Relationship Specialty Start Date End Date Heber Calderon MD [address] [place] [address] PCP - General 10/14/10 documented as of this encounter
--- OUTSIDE RECORDS SUMMARY | 2024-08-28 07:59 | XMS_ITS | Encounter Summary ---
Author Organization [facility] Address [address] [facility] [place] [address] Care Team Providers Care Charge Weigher Name Role Phone Heber Calderon MD Primary Care Provider [phone] Encounter Details Date Type Department Care Team (Late st Contact Info) Description 04/03/2024 Lab Requisition [facility] Physician [facility] - DermPath Lab [address] [place] [phone] Chey Lin PA-C [address] [place] [address] Neoplasm of uncertain behavior of skin [...] Priority Date/Time Associated Diagnosis Comments DERMATOPATHOLOGY Routine 04/03/2024 3:33 AM DONATION SPECIALIST Neoplasm of uncertain behavior of skin documented in this encounter Results * DERMATOPATHOLOGY (04/03/2024 3:33 AM DONATION SPECIALIST) Case Report Dermatopathology Report Case: [id number] Authorizing Provider: Chey Lin PA-C Collected: 04/03/2024 03:33 AM Ordering Location: [facility] Physician [facility] - Received: 04/04/2024 01:30 PM DermPath Lab Pathologist: Gladys Palmer MD Specimens: A) - Skin, left forearm B) - Skin, left chest 2:14 PM [facility] DERMATOPATHOLOGY LABORATORY Final Diagnosis Specimen A. SKIN, left forearm: SQUAMOUS CELL CARCINOMA IN SITU, PRESENT AT THE BASE OF THE SPECIMEN (D04.62) (see microscopic description and comment) OVERLYING CUTANEOUS HORN (L85.8) Specimen B. SKIN, left chest: INTRADERMAL MELANOCYTIC NEVUS (D22.5) 2:14 PM [facility] DERMATOPATHOLOGY LABORATORY Clinical History A: SCC in SITU B: BCC 2:14 PM [facility] DERMATOPATHOLOGY LABORATORY Gross Description Specimen A: Received is one formalin filled container labeled with the patient's name and designated left forearm. The specimen consists of a shave biopsy measuring 3x3x2 mm. Jar 0. Specimen B: Received is one formalin filled container labeled with the patient's name and designated left chest. The specimen consists of a shave biopsy measuring 4x4x1 mm. Jar 0. 2:14 PM [facility] DERMATOPATHOLOGY LABORATORY Microscopic Description Specimen A. SKIN, left forearm: The epidermis shows parakeratosis, full thickness disorderly maturation of keratinocytes, mitoses at different levels, and dyskeratotic cells. The lesion extends to the base of the biopsy. There is a column of marked compact hyperkeratosis. COMMENT: An invasive squamous cell carcinoma cannot be ruled out. Specimen B. SKIN, left chest: There are nests of cytologically bland melanocytes within the dermis that mature with depth. 2:14 PM [facility] DERMATOPATHOLOGY LABORATORY Disclaimer An external and internal positive and negative controls are appropriate for the histochemical, immunohistochemical and immunofluorescence stain(s) in this case (if any), except where stated explicitly. The performance characteristics of the stain(s) cited in this report were developed and its performance characteristic determined by the Dermatopathology Laboratory at [facility], directed by Dr. Janett Hurst. These tests need not be, and therefore are not, approved by the [place] Food and Drug Administration. The tests are used for clinical purposes. Billing Codes Specimen Charges Stain Charges 61613 28855 1 1 2:14 PM [facility] DERMATOPATHOLOGY LABORATORY Embedded Images 2:14 PM DONATION SPECIALIST DERMATOPATHOLOGY LABORATORY Pathology/Cytology TISSUE SPECIMEN FROM SKIN / Unknown 04/03/2024 3:33 AM DONATION SPECIALIST 04/04/2024 1:30 PM DONATION SPECIALIST Miscellaneous samples (specimen) TISSUE SPECIMEN FROM SKIN / Unknown 04/03/2024 3:33 AM DONATION SPECIALIST 04/04/2024 1:30 PM DONATION SPECIALIST Chey Lin PA-C LAB - PATHOLOGY/CYTO LOGY ORDERABLES DERMATOPATHOLOGY LABORATORY [facility] - Department of Dermatology [facility] Specialized Medicine [address] [place] [address], [address] [phone] documented in this encounter Visit Diagnoses Diagnosis Neoplasm of uncertain behavior of skin documented in this encounter Care Teams Charge Weigher Relationship Specialty Start Date End Date Heber Calderon MD [address] [place] [address] PCP - General 10/14/10 documented as of this encounter
--- OUTSIDE RECORDS SUMMARY | 2024-08-28 07:59 | XMS_ITS | Encounter Summary ---
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, including shoulder Social History Tobacco Use Types Packs/Day Years Used Date Smoking Tobacco: Never Assessed Sex and Gender Information Value Date Recorded Sex Assigned at Not on file Gender Identity Not on file Sexual Orientation Not on file documented as of this encounter Plan of Treatment Not on file documented as of this encounter Procedures Procedure Name Priority Date/Time Associated Diagnosis Comments DERMATOPATHOLOGY Routine 05/05/2024 12:0 0 AM FACILITY MAINTENANCE HELPER 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 SKIN, left forearm: DERMAL SCAR RESIDUAL SQUAMOUS CELL CARCINOMA NOT IDENTIFIED (L90.5) 4 2:04 PM [facility] DERMATOPATHOLOGY LABORATORY Clinical History SCC in SITU Please check margins 2:04 PM [facility] DERMATOPATHOLOGY LABORATORY Gross Description Specimen A: Received is one formalin filled container labeled with the patient's name and designated left forearm. The specimen consists of a non-oriented ellipse of skin measuring 42o10v2 mm. The epidermal surface is unremarkable. The margin is inked green. The 12 o'clock and 6 o'clock tips are submitted in cassette 1. The remainder of the ellipse is serially sectioned and submitted in cassette 2. Jar 0. 2:04 PM [facility] DERMATOPATHOLOGY LABORATORY Microscopic Description Specimen A. SKIN, left forearm: There are fibroblasts and collagen bundles oriented parallel to the skin surface. There are elongated blood vessels, some of which are oriented perpendicular to the skin surface. No residual squamous cell carcinoma is identified. 2:04 PM [facility] DERMATOPATHOLOGY LABORATORY Disclaimer An external and internal positive and negative controls are appropriate for the histochemical, immunohistochemical and immunofluorescence stain(s) in this case (if any), except where stated explicitly. The performance characteristics of the stain(s) cited in this report were developed and its performance characteristic determined by the Dermatopathology Laboratory at [facility], directed by Dr. Janett Hurst. These tests need not be, and therefore are not, approved by the [place] Food and Drug Administration. The tests are used for clinical purposes. 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
--- NOTE | 2024-08-28 08:42 | ECG_ITS ---
Test Date: 2024-08-28 08:58:40 Measurements Intervals Lanse Rate: 79 P: 62 NE: 134 QRS: -6 QRSD: 86 T: 19 QT: 344 QTc: 394 Interpretive Statements SINUS RHYTHM LOW QRS VOLTAGE IN PRECORDIAL LEADS [QRS DEFLECTION < 1.0 mV IN CHEST LEADS] ABNORMAL ECG Electronically Signed On 08-28-2024 14:02:00 CDT by Jean Bowden M.D.
[2024-08-28 09:40] LABS: Hematocrit 32.8 % (42.0-52.0); Mean Corpuscular HGB Conc 33.5 g/dl (32-36); Mean Corpuscular Hemoglobin 31.9 pg (26-34); Mean Corpuscular Volume 95.1 fl (80-100); Mean Platelet Volume 8.9 fl (7.4-10.4); Platelet Count Result 210 k/mm3 (150-375); Red Blood Count 3.45 M/mm3 (4.6-6.20); Red Cell Distribution Width 12.1 % (11.5-14.5); White Blood Count 4.8 K/mm3 (4.5-10.0)
[2024-08-28 09:43] LABS: Add Urine Microscopic? NO; Appearance Urine Clear (Clear); Bilirubin Urine Negative (Negative); Blood Urine Negative (Negative); Color Urine Yellow (Yellow); Glucose Urine UA Negative (Negative); Ketones Urine Negative (Negative); Leukocyte Esterase Ur Negative LEU/UL (Negative); Nitrate Urine Negative (Negative); Protein Urine Negative (Negative); Specific Grav Ur 1.008 (1.001-1.035); Urobilinogen Urine 0.2 mg/dL (<2.0)
[2024-08-28 09:54] LABS: Anion Gap 10 mmol/L (4-12); Blood Urea Nitrogen 33 mg/dL (9-20); Calcium 9.3 mg/dL (8.4-10.2); Carbon Dioxide 24 mmol/L (22-30); Chloride 102 mmol/L (98-107); Estimated Glomerular Filt Rate 47; Glucose 117 mg/dL (65-110); INR 0.9; Potassium 5.2 mmol/L (3.4-5.0); Prothrombin Time 11.9 Seconds (11.1-14.7); Sodium 136 mmol/L (137-145)
[2024-08-28 09:55] LABS: Partial Thromboplastin Time 23.4 Seconds (22.3-36.8)
[2024-08-28 09:57] LABS: Hemoglobin A1C 5.9 % (<5.7)
== END 2024-08-28 07:49 | disposition home or self-care (01) ==
LOC: ANHSURGERY 07:54
PROVIDERS: PCP Family Medicine; Visit Provider Neurological Surgery
DX: M48.061 Spinal stenosis, lumbar region without neurogenic claudication (principal); I10 Essential (primary) hypertension; Z01.818 Encounter for other preprocedural examination
CPT/HCPCS: 36415; 80048; 81003; 83036; 85027; 85610; 85730; 93005

== ENCOUNTER 2024-09-06 00:27 | Day surgery (SDC) | payer MEDICARE, SELFPAY ==
--- NOTE | 2024-08-28 07:57 | PC.NURSE ---
Report to the Outpatient Waiting Room, entrance under the green pavilion located off [facility], at time _6 am on date __09/06/24 . Planned Procedure Time: _7:30 am .? Time changes happen often and if your time is changed the preop area will call you the afternoon before. - You and your visitor will be asked to self-screen and do not enter if you have any COVID symptoms. Please call surgeon if you need to reschedule. - A mask is optional within the hospital at this time. Patients may have clear liquids (water, carbonated beverages, clear teas, apple juice) until 3 hours prior to surgery ( 4:30 am) with a maximum of 20 ounces. - No food from midnight until time of surgery and no smoking, or chewing tobacco (or any form of nicotine). No chewing gum, candy or mints. Take only the following medications with a SIP of water on the morning of surgery: ____NONE DO NOT STOP ANY OF YOUR OTHER PRESCRIPTION MEDICATIONS PRIOR TO SURGERY EXCEPT THE FOLLOWING PT STATES Hold all vitamins and supplements for [address] VICTOR . LAST DOSE08/29/24 Medications to discontinue per physician MOTRIN_PER DR VICTOR Please no make-up, nail greenlandic, hairspray, perfume, deodorant, or body powder the day of surgery.? No jewelry (including any body piercings) or valuables the day of surgery, leave them at home.? Please take a shower or bath the night before, or the morning of, surgery with an antibacterial soap.? Wear comfortable, loose fitting clothing.? Children are encouraged to wear pajamas. - Jewelry must be removed prior to entering the operating room.? Rings and piercings that are not removed may be cut off. - The hospital will not accept responsibility for valuables.? - Please leave all valuables, including medications, at home the day of surgery. If you are going home after surgery, a licensed auto transport driver must drive you home.? - NO public transportation without another adult if you receive anesthesia. - We recommend that an adult stay with you for 24 hours following discharge. - We also recommend that you do not drive, make important decision, drink alcoholic beverages, or take any drugs that were not prescribed by your health care provider for at least 24 hours after your discharge time. For Pediatric surgeries, we recommend two adults accompany the child home. Follow any additional instructions given to you from your surgeon. verbal and written instructions given to ___PATIENT_AND SUE and asked if any additional questions and then verbalized understanding. Patient advised to call surgeon office or pre surgery nurse liaison [phone] if any additional questions.
[2024-08-28 07:59] VITALS: BMI 26.4
[2024-08-28 08:42] VITALS: BP 158/76; PULSE 85; RESP 18; TEMP 36.8; O2SAT 98
--- NOTE | ~2024-09-06 | XR_ITS ---
EXAMINATION: XR fluoroscopy no charge DATE: 09/06/2024 09:57 INDICATION: Left L4-L5 and L5-S1 hemilaminectomies TECHNIQUE: 4 fluoroscopic images of the lumbar spine were obtained during procedure performed by Dr. Alonso. Radiologist was not present for the imaging or procedure. The amount of fluoroscopy time use d during this procedure was 0.1 minutes. Total DAP was 0.87 Gycm^2. COMPARISON: Lumbar spine MR dated 11/17/2023 FINDINGS: Unchanged mild grade 1 anterolisthesis L4 on L5 and with mild disc height loss at L4-L5 and L5-S1. La p sponge markers and surgical instrumentation projects over the soft tissues posterior to L4-L5 and L 5-S1. IMPRESSION: 1. Fluoroscopy utilized during neurosurgical procedure at the lower lumbar spine. See procedure note for further detail. Reviewed, dictated and finalized at location B. IMPRESSION: 1. Fluoroscopy utilized during neurosurgical procedure at the lower lumbar spin e. See procedure note for further detail.
--- OUTSIDE RECORDS SUMMARY | 2024-09-06 00:29 | XMS_ITS | Encounter Summary ---
Author Organization [facility] Address [address] [facility] [place] [address] Care Team Providers Care Hydrogeologist Name Role Phone Heber Calderon MD Primary Care Provider [phone] Encounter Details Date Type Department Care Team (Late st Contact Info) Description 05/05/2024 Lab Requisition 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 - Received: 05/08/2024 01:24 PM DermPath Lab Pathologist: Natali Cihu MD Specimen: Skin, left forearm 2:04 PM [facility] DERMATOPATHOLOGY LABORATORY Final Diagnosis Specimen A. SKIN, left forearm: DERMAL SCAR RESIDUAL SQUAMOUS CELL CARCINOMA NOT IDENTIFIED (L90.5) 4 2:04 PM [facility] DERMATOPATHOLOGY LABORATORY Clinical History SCC in SITU Please check margins 2:04 PM [facility] DERMATOPATHOLOGY LABORATORY Gross Description Specimen A: Received is one formalin filled container labeled with the patient's name and designated left forearm. The specimen consists of a non-oriented ellipse of skin measuring 56p48t3 mm. The epidermal surface is unremarkable. The margin is inked green. The 12 o'clock and 6 o'clock tips are submitted in cassette 1. The remainder of the ellipse is serially sectioned and submitted in cassette 2. Jar 0. 2:04 PM [facility] DERMATOPATHOLOGY LABORATORY Microscopic Description Specimen A. SKIN, left forearm: There are fibroblasts and collagen bundles oriented parallel to the skin surface. There are elongated blood vessels, some of which are oriented perpendicular to the skin surface. No residual squamous cell carcinoma is identified. 2:04 PM [facility] DERMATOPATHOLOGY LABORATORY Disclaimer An external and internal positive and negative controls are appropriate for the histochemical, immunohistochemical and immunofluorescence stain(s) in this case (if any), except where stated explicitly. The performance characteristics of the stain(s) cited in this report were developed and its performance characteristic determined by the Dermatopathology Laboratory at [facility], directed by Dr. Janett Hurst. These tests need not be, and therefore are not, approved by the [place] Food and Drug Administration. The tests are used for clinical purposes. Billing Codes Specimen Charges Stain Charges 44520 1 4 2:04 PM [facility] DERMATOPATHOLOGY LABORATORY Embedded Images 2:04 PM [facility] DERMATOPATHOLOGY LABORATORY Pathology/Cytolog y TISSUE SPECIMEN FROM SKIN / Unknown 05/05/2024 05/08/2024 1:24 PM STEAM DISTRIBUTION SUPERVISOR Yanet Guzman MD LAB - PATHOLOGY/CYTO LOGY ORDERABLES DERMATOPATHOLOGY LABORATORY 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
--- OUTSIDE RECORDS SUMMARY | 2024-09-06 00:29 | XMS_ITS | Encounter Summary ---
Author Organization [facility] Address [address] [place] [address] Care Team Providers Care Textile Clothing And Footwear Mechanic Name Role Phone Heber Calderon MD Primary Care Provider [phone] Encounter Details Date Type Department Care Team (Late st Contact Info) Description 12/13/2023 Lab Requisition [facility] - DermPath Lab [address] [facility] [place] [phone] Eusebio De Leon MD [facility] DERMATOLOGY [address] [place] [phone] Neoplasm of uncertain behavior of skin [...] AM CDT) Case Report Dermatopathology Report Case: [id number] Authorizing Provider: Eusebio De Leon MD Collected: 12/13/2023 12:00 AM Ordering Location: [facility] Physician [facility] - Received: 12/16/2023 01:40 PM [...] characteristic determined by the Dermatopathology Laboratory at [facility], directed by Dr. Janett Hurst. These tests need not be, and therefore are not, approved by the [place] Food and Drug Administration. The tests are used for clinical purposes. Billing Codes Specimen Charges Stain Charges 57039 1 4 4:32 PM CDT DERMATOPATHOLOGY LABORATORY Embedded Images 4 4:32 PM CDT DERMATOPATHOLOGY LABORATORY Pathology/Cytolog y TISSUE SPECIMEN FROM SKIN / Unknown 12/13/2023 12/16/2023 1:40 PM CDT Eusebio De Leon MD LAB - PATHOLOGY/CYTO LOGY ORDERABLES DERMATOPATHOLOGY LABORATORY [facility] - Department of Dermatology [address], [address] [phone] documented in this encounter Visit Diagnoses Diagnosis Neoplasm of uncertain behavior of skin documented in this encounter Care Teams Textile Clothing And Footwear Mechanic Relationship Specialty Start Date End Date Heber Calderon MD [address] [place] [address] PCP - General 10/14/10 documented as of this encounter
--- OUTSIDE RECORDS SUMMARY | 2024-09-06 00:29 | XMS_ITS | Encounter Summary ---
Author Organization [facility] Address [address] [facility] [place] [address] Care Team Providers Care Tire Trucker Name Role Phone Heber Calderon MD Primary Care Provider [phone] Encounter Details Date Type Department Care Team (Late st Contact Info) Description 03/14/2024 Lab Requisition [facility] - DermPath Lab [address] [facility] [place] [phone] Eusebio De Leon MD [facility] DERMATOLOGY [address] [place] [phone] Squamous cell carcinoma of skin of [...] AM CDT) Case Report Dermatopathology Report Case: [id number] Authorizing Provider: Eusebio De Leon MD Collected: 03/14/2024 12:00 AM Ordering Location: [facility] Physician [facility] - Received: 03/15/2024 11:23 AM DermPath Lab [...] of a non-oriented ellipse of skin measuring 87f75n8 mm. The epidermal surface is unremarkable. The [...] characteristic determined by the Dermatopathology Laboratory at [facility], directed by Dr. Janett Hurst. These tests need not be, and therefore are not, approved by the [place] Food and Drug Administration. The tests are used for clinical purposes. Billing Codes Specimen Charges Stain Charges 46752 1 1:53 PM CDT DERMATOPATHOLOGY LABORATORY Embedded Images 1:53 PM CDT DERMATOPATHOLOGY LABORATORY Pathology/Cytolog y TISSUE SPECIMEN FROM SKIN / Unknown 03/14/2024 03/15/2024 11:23 AM CDT Eusebio De Leon MD LAB - PATHOLOGY/CYTO LOGY ORDERABLES DERMATOPATHOLOGY LABORATORY [facility] Department of Dermatology [place] [id number] [facility], [address]rd [address] [phone] documented in this encounter Visit Diagnoses Diagnosis Squamous cell carcinoma of skin of scalp and neck Squamous cell carcinoma of scalp and skin of neck documented in this encounter Care Teams Tire Trucker Relationship Specialty Start Date End Date Heber Calderon MD [address] [place] [address] PCP - General 10/14/10 documented as of this encounter
--- OUTSIDE RECORDS SUMMARY | 2024-09-06 00:29 | XMS_ITS | Encounter Summary ---
Author Organization [facility] Address [address] [facility] [place] [address] Care Team Providers Care Miller Head Wet Process Name Role Phone Heber Calderon MD Primary Care Provider [phone] Encounter Details Date Type Department Care Team (Late st Contact Info) Description 04/03/2024 Lab Requisition [facility] Physician [facility] - DermPath Lab [address] [place] [phone] Chey Lin PA-C [address] [place] [phone] Neoplasm of uncertain behavior of [...] Diagnosis Comments DERMATOPATHOLOGY Routine 04/03/2024 3:33 AM CASING FINISHER AND STUFFER Neoplasm of uncertain behavior of skin documented in this encounter Results * DERMATOPATHOLOGY (04/03/2024 3:33 AM CASING FINISHER AND STUFFER) Case Report Dermatopathology Report Case: [id number] Authorizing Provider: Chey Lin PA-C Collected: 04/03/2024 03:33 AM Ordering Location: [facility] Physician [facility] - Received: 04/04/2024 01:30 PM DermPath Lab Pathologist: Gladys Palmer MD Specimens: A) - Skin, left forearm B) - Skin, left chest 2:14 PM [facility] DERMATOPATHOLOGY LABORATORY Final Diagnosis Specimen A. SKIN, left forearm: SQUAMOUS CELL CARCINOMA IN SITU, PRESENT AT THE BASE OF THE SPECIMEN (D04.62) (see microscopic description and comment) OVERLYING CUTANEOUS HORN (L85.8) Specimen B. SKIN, left chest: INTRADERMAL MELANOCYTIC NEVUS (D22.5) 2:14 PM [facility] DERMATOPATHOLOGY LABORATORY Clinical History A: SCC in SITU B: BCC 2:14 PM [facility] DERMATOPATHOLOGY LABORATORY Gross Description Specimen A: [...] measuring 4x4x1 mm. Jar 0. 2:14 PM [facility] DERMATOPATHOLOGY LABORATORY Microscopic Description Specimen A. [...] dermis that mature with depth. 2:14 PM [facility] DERMATOPATHOLOGY LABORATORY Disclaimer An external and internal positive and negative controls are appropriate for the histochemical, immunohistochemical and immunofluorescence stain(s) in this case (if any), except where stated explicitly. The performance characteristics of the stain(s) cited in this report were developed and its performance characteristic determined by the Dermatopathology Laboratory at [facility], directed by Dr. Janett Hurst. These tests need not be, and therefore are not, approved by the [place] Food and Drug Administration. The tests are used for clinical purposes. Billing Codes Specimen Charges Stain Charges 96428 46186 1 1 2:14 PM [facility] DERMATOPATHOLOGY LABORATORY Embedded Images 2:14 PM CASING FINISHER AND STUFFER DERMATOPATHOLOGY LABORATORY Pathology/Cytology TISSUE SPECIMEN FROM SKIN / Unknown 04/03/2024 3:33 AM CASING FINISHER AND STUFFER 04/04/2024 1:30 PM CASING FINISHER AND STUFFER Miscellaneous samples (specimen) TISSUE SPECIMEN FROM SKIN / Unknown 04/03/2024 3:33 AM CASING FINISHER AND STUFFER 04/04/2024 1:30 PM CASING FINISHER AND STUFFER Chey Lin PA-C LAB - PATHOLOGY/CYTO LOGY ORDERABLES DERMATOPATHOLOGY LABORATORY [facility] - Department of Dermatology [facility] [address] [place] [address], [address] [phone] documented in this encounter Visit Diagnoses Diagnosis Neoplasm of uncertain behavior of skin documented in this encounter Care Teams Miller Head Wet Process Relationship Specialty Start Date End Date Heber Calderon MD [address] [place] [address] PCP - General 10/14/10 documented as of this encounter
--- OUTSIDE RECORDS SUMMARY | 2024-09-06 00:29 | XMS_ITS | Encounter Summary ---
Author Organization [facility] Address [address] [facility] [address] Care Team Providers Care Director New Product Name Role Phone Heber Calderon MD Primary Care Provider [phone] Encounter Details Date Type Department Care Team (Late st Contact Info) Description 09/30/2023 Lab Requisition [facility] - DermPath Lab [address] [facility] [place] [place] [phone] Eusebio De Leon MD [facility] DERMATOLOGY [address] [place] [phone] Neoplasm of uncertain behavior of skin [...] AM CDT) Case Report Dermatopathology Report Case: [id number] Authorizing Provider: Eusebio De Leon MD Collected: 09/30/2023 12:00 AM Ordering Location: [facility] - Received: 10/01/2023 02:15 PM DermPath Lab Pathologist: Little Hassan MD Specimens: A) - Skin, left central malar cheek B) - Skin, right medial trapezial neck 4:49 PM [facility] DERMATOPATHOLOGY LABORATORY Final Diagnosis Specimen A. SKIN, left central malar cheek: SQUAMOUS CELL CARCINOMA, WELL DIFFERENTIATED (C44.329) Specimen B. SKIN, right medial trapezial neck: SQUAMOUS CELL CARCINOMA IN SITU, PRESENT AT THE BASE OF THE SPECIMEN (D04.4) (see microscopic description and comment) 4:49 PM [facility] DERMATOPATHOLOGY LABORATORY Clinical History A-B: SCC>. 4:49 PM [facility] DERMATOPATHOLOGY LABORATORY Gross Description Specimen A: [...] measuring 5x3x2 mm. Jar 0. 4:49 PM [facility] DERMATOPATHOLOGY LABORATORY Microscopic Description Specimen A. [...] carcinoma cannot be ruled out. 4:49 PM [facility] DERMATOPATHOLOGY LABORATORY Disclaimer An external and internal positive and negative controls are appropriate for the histochemical, immunohistochemical and immunofluorescence stain(s) in this case (if any), except where stated explicitly. The performance characteristics of the stain(s) cited in this report were developed and its performance characteristic determined by the Dermatopathology Laboratory at [facility], directed by Dr. Janett Hurst. These tests need not be, and therefore are not, approved by the [place] Food and Drug Administration. The tests are used for clinical purposes. Billing Codes Specimen Charges Stain Charges 85905 15670 1 1 4 4:49 PM CDT DERMATOPATHOLOGY LABORATORY Embedded Images 4 4:49 PM CDT DERMATOPATHOLOGY LABORATORY Pathology/Cytology TISSUE SPECIMEN FROM SKIN / Unknown 09/30/2023 10/01/2023 2:15 PM CDT Miscellaneous samples (specimen) TISSUE SPECIMEN FROM SKIN / Unknown 09/30/2023 10/01/2023 2:15 PM CDT Eusebio De Leon MD LAB - PATHOLOGY/CYTO LOGY ORDERABLES DERMATOPATHOLOGY LABORATORY [facility] - Department of Dermatology [facility] Medicine [address] [place] [address], [address] [phone] documented in this encounter Visit Diagnoses Diagnosis Neoplasm of uncertain behavior of skin documented in this encounter Care Teams Director New Product Relationship Specialty Start Date End Date Heber Calderon MD [address] [place] [phone] PCP - General 10/14/10 documented as of this encounter
--- OUTSIDE RECORDS SUMMARY | 2024-09-06 00:29 | XMS_ITS | Clinical Summary ---
Author Organization [facility] Address [address] [facility] [place] [address] Care Team Providers Care Commercial Solar Sales Consultant Name Role Phone Heber Calderon MD Primary Care Provider [phone] Source Comments [facility],non-owned Affiliates and Associated Physician Practices is amultiple site organization consisting of ambulatory clinics and hospital sitesin [place], [place], [place] and [place]. This disclosure is being madepursuant to the Care Everywhere program and may not contain all information available regarding this patient. Last updated 18.[facility] Social History Tobacco Use Types Packs/Day Years [...] VACCINE ( - 2023-2 5 season) 2024 DEPRESSION SCREENING 05/31/2024 MEDICARE AWV CALENDAR YEAR 2024 INFLUENZA VACCINE (Season Ended) 2025 Respiratory Syncytial Virus (RSV) Vaccine Pt: or [...] age to complete this topic Care Teams Commercial Solar Sales Consultant Relationship Specialty Start Date End Date Heber Calderon MD [address] [place] [phone] PCP - General 10/14/10
[2024-09-06 06:30] VITALS: BP 154/73; PULSE 80; RESP 16; TEMP 36.7; O2SAT 100
[2024-09-06] MEDS: LACTATED RINGERS 1,000 ML 30 ML IV CONT ×2 (06:30→09:45)
[2024-09-06 06:35] LABS: Glucose Point of Care 110 mg/dl (65-105)
--- NOTE | 2024-09-06 06:54 | WPDANESEPPF ---
Anes - Initial Pre Proc Eval Procedure: Operation Date: 09/06/24 07:30 Proposed Procedures p Left L4-5, L5-S1 Ky Laminectomy - Ivis Alonso MD Date/Time: 09/06/24 06:54 Surgeon: Ivis Alonso MD Pre Op Diagnosis: lumbar stenosis with radiculopathy Patient Data Age: 69 Gender: M Height: 1.65 m Weight: 72.2 kg Last Vital Signs Temp 36.8 C 08/28/24 08:42 Pulse 85 08/28/24 08:42 Resp 18 08/28/24 08:42 BP 158/76 H 08/28/24 08:42 Pulse Ox 98 08/28/24 08:42 O2 Del Method Room Air 08/28/24 08:42 Allergies Allergy/AdvReac Type Severity Reaction Status Date / Time No Known Allergies Allergy Verified 09/06/24 06:55 Home Medications ?Medication ?Instructions ?Recorded ?Confirmed ?Type [id number]-[id number] 300 mcg-K 60 1 tablet PO DAILY 08/02/19 08/28/24 History mcg-lycop 600 mcg-lutein 300 mcg tablet (Centrum Silver Men) cholecalciferol (vitamin D3) 50 50 mcg PO DAILY 07/29/23 08/28/24 History mcg (2,000 unit) tablet cyclobenzaprine 5 mg tablet 5 mg PO BID PRN muscle spasm 02/03/24 08/28/24 History atorvastatin 10 mg tablet (Lipitor) 10 mg PO QHS #100 tabs 06/19/24 08/28/24 Rx lisinopril 10 1 tablet PO DAILY #100 tabs 06/19/24 08/28/24 Rx mg-hydrochlorothiazide 12.5 mg tablet metformin 500 mg tablet,extended 1,000 mg (2 x 500 mg) PO DAILY 06/19/24 08/28/24 Rx release 24 hr #200 tabs ibuprofen 100 mg tablet 200 mg PO HS 08/28/24 08/28/24 History ibuprofen-diphenhydramine citrate 2 cap PO HS 08/28/24 08/28/24 History 200 mg-38 mg tablet (Motrin PM) vitamins A,C,U-zodd-ytmcrv 2,148 1 tablet PO BID 08/28/24 08/28/24 History mcg-113 mg-45 mg-17.4 mg tablet Laboratory Tests 09/06/24 06:33 POC Capillary Glucose 110 H mg/dl (65-105) Patient hx anesthesia problems: none Family hx anesthesia problems: none Results Review: All pre-operative results and documents have been reviewed as part of the pre-operative evaluation. [facility] Past Medical History Medical History Bulging discs Bulging lumbar disc Essential (primary) hypertension Dyslipidemia Acute trigeminal herpes zoster 12/18 Cataract 2018 Type 2 diabetes mellitus without complication, without long-term current use of insulin Surgical History Surgical History [place] teeth extracted (~1977) Family History Family History Other Diabetes mellitus Social History Social History Smoking packs per day: 1 Smoking cigarettes per day: 20.0 Years smoked: 48 Smoking pack-years: 48.00 Smoking status: Former smoker Tobacco type: cigarettes Second hand tobacco smoke exposure: No Smoking end date: 10/29/17 Alcohol intake: current Drinks per week: 20 Alcohol use details: BEER Substance use: never Substance use type: does not use Do You Feel Safe in your Home?: Yes Lack of Transportation: No Lack of Food: Never True Current Housing: I Have Housing Concerned About Future Housing: No Difficulty Paying Gas/Electric Bills: No Difficulty Paying for Meds: No Currently Unemployed: No Education: High School Diploma/GED Difficulty w/ Childcare or Family Care: No Living arrangements: with family Occupation/Education: retired Gender identity (if verbalized by the patient): Male Sexual Orientation (if Verbalized by the Patient): Straight or Heterosexual Spiritual care concerns: No Agree to blood products: Yes Anes - Eval Final PreProcedure Day of Procedure 09/06/24 06:54 Patient weight: overweight Heart: regular rate and rhythm Lungs: clear to auscultation Airway: Mallampati scale class II Neurological: alert and oriented Last oral intake: >/= 8 hours ASA classification: III Emergent: no Anesthetic plan: proceed Anesthesia type and monitoring: general ETT and standard monitoring Results Review: All pre-operative results and documents have been reviewed as part of the pre-operative evaluation. Informed Consent: The patient's anesthetic plan and its attendant risks and benefits were discussed with the patient/family/POA. Questions were solicited and answers provided to the satisfaction of the patient/family/POA.
--- NOTE | 2024-09-06 07:18 | WPDHPUPDATE1 ---
History and Physical Update Update Date/Time: 09/06/24 07:18 History and Physical has been reviewed, including an updated exam of the patient. There are NO changes in the patient's condition. Risks, benefits, and alternatives have been discussed and questions answered. Patient agrees to proceed with procedure.
[2024-09-06] MEDS: ceFAZolin 2 GM/D5W 50 ML 2 GM/50 ML BAG IVPB (07:35)
[2024-09-06] MEDS: BUPIVACAINE/EPINEPHRINE 0.5% 50 ML VIAL 30 ML INFILTRATE (08:07)
[2024-09-06 09:45] VITALS: BP 133/64; PULSE 98; RESP 16; TEMP 36.1; O2SAT 100
--- NOTE | 2024-09-06 09:57 | W.PM.PROC2 ---
Procedure Note - Detailed Date of Procedure 09/06/24 Pre-op Diagnosis lumbar stenosis with radiculopathy Post-op Diagnosis Same Procedure Performed 1. Left L4-5, L5-S1 hemilaminectomies 2. Use of microscope for microsurgical dissection 3. Use of C-arm for fluoroscopy Surgeon Ivis lAonso MD Textile Machine Maintenance Mechanic Carrie Anesthesia General Description of Procedure The patient was brought to the operating room, and general anesthesia was induced. The patient was placed prone on the Hector frame, and all pressure points were padded. Compression devices were placed on the patient's calves. The skin was cleaned with alcohol. The C-arm was brought onto the field to localize the appropriate disc space and assist with incisional planning. The previous incision was marked. The area was prepped and draped in usual sterile fashion. A time out was conducted, and pre-operative antibiotics were administered. Local anesthesia was injected into the planned incision. A midline skin incision was opened with a 10-blade scalpel, and dissection was carried down with the monopolar cautery to open the fascia on the left side of midline. Once the spinous processes were located, a subperiosteal dissection was performed to expose the laminae of L4 and L5 on the left, taking care to avoid the facet. A self-retaining retractor was placed. The C-arm was brought in to confirm the correct level. The microscope was draped and brought into the field for microsurgical dissection. The high-speed drill was used to thin the left L4 lamina to the ligamentum flavum. A currette was used to separate the ligament from the bone which was then removed with the Kerrison. The ligamentum was then elevated with a currette and removed. A kerrison was passed along the traversing nerve root and followed distally to remove bone into the foramen. A Woodsen was used to verify adequate decompression at the cranial and caudal aspects of the decompression as well as into the foramen. This process was repeated at L5. The lamina was thinned with the drill to the ligamentum flavum. The ligamentum was then elevated with a currette and removed with a kerrison until the traversing nerve root was fully exposed. Hemostasis was ensured with the bipolar, surgiflo, and cottonoids, and the area was copiously irrigated. No evidence of CSF leak was noted. The fascia was closed with 0-Vicryl in an interrupted fashion. The soft tissue was again copiously irrigated. The dermis was closed with 2-0 then 3-0 interrupted Vicryl. The skin was closed with 4-0 monocryl. Skin glue was applied. The patient was returned supine on the stretcher, extubated, and transferred to PACU without incident. Billing codes: 46493, 98700, 01329 Estimated Blood Loss 50 Drains No Packing No Pathology None sent Complications No immediate complications Condition Stable Disposition PACU [facility] Billing Surgery - Charge Forward: Surgery Billing
[2024-09-06 10:00] VITALS: BP 124/67; PULSE 95; RESP 18; O2SAT 95
[2024-09-06 10:15] VITALS: BP 123/64; PULSE 92; RESP 18; O2SAT 95
[2024-09-06 10:18] LABS: Glucose Point of Care 154 mg/dl (65-105)
[2024-09-06 10:25] VITALS: BP 127/56; PULSE 87; RESP 16
[2024-09-06 10:55] VITALS: BP 110/57; PULSE 92; RESP 16
== END 2024-09-06 11:23 | disposition home or self-care (01) ==
PROVIDERS: PCP Family Medicine; Visit Provider Neurological Surgery
PROC: (CPT 63030; principal; 2024-09-06 07:30)
DX: M48.061 Spinal stenosis, lumbar region without neurogenic claudication (principal); M54.16 Radiculopathy, lumbar region; I10 Essential (primary) hypertension; E78.5 Hyperlipidemia, unspecified; E11.9 Type 2 diabetes mellitus without complications; Z79.84 Long term (current) use of oral hypoglycemic drugs; Z87.891 Personal history of nicotine dependence
CPT/HCPCS: 63030; 63035; 82948; 99199; J0690; J1100; J2003; J2250; J2405; J2704; J7120

== ENCOUNTER 2024-10-04 15:11 | Outpatient (CLI) | payer MEDICARE, SELFPAY ==
--- OUTSIDE RECORDS SUMMARY | 2024-10-04 15:13 | XMS_ITS | Encounter Summary ---
Author Organization [facility] Address [address] [facility] [place] [address] Care Team Providers Care Yarn Finisher Name Role Phone Heber Calderon MD Primary Care Provider [phone] Encounter Details Date Type Department Care Team (Late st Contact Info) Description 03/14/2024 Lab Requisition [facility] - DermPath Lab [address] [place] [phone] Eusebio De Leon MD [facility] DERMATOLOGY [address] [place] [phone] Squamous cell carcinoma of skin of scalp and neck Social History Tobacco Use Types Packs/Day Years Used Date Smoking Tobacco: Never Assessed Sex and Gender Information Value Date Recorded Sex Assigned at Not on file 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 The epidermal surface is unremarkable. The [...] characteristic determined by the Dermatopathology Laboratory at [facility], directed by Dr. Janett Hurst. These tests need not be, and therefore are not, approved by the [place] Food and Drug Administration. The tests are used for clinical purposes. Billing Codes Specimen Charges Stain Charges 17216 1 1:53 PM CDT DERMATOPATHOLOGY LABORATORY Embedded Images 1:53 PM CDT DERMATOPATHOLOGY LABORATORY Pathology/Cytolog y TISSUE SPECIMEN FROM SKIN / Unknown 03/14/2024 03/15/2024 11:23 AM CDT Eusebio De Leon MD LAB - PATHOLOGY/CYTOLOGY WARD OBDULIOJAYESH Final Result DERMATOPATHOLOGY LABORATORY [facility] - Department of Dermatology [address], [address] [phone] documented in this encounter Visit Diagnoses Diagnosis Squamous cell carcinoma of skin of scalp and neck Squamous cell carcinoma of scalp and skin of neck documented in this encounter Care Teams Yarn Finisher Relationship Specialty Start Date End Date Heber Calderon MD [address] [place] [phone] PCP - General 10/14/10 documented as of this encounter
--- OUTSIDE RECORDS SUMMARY | 2024-10-04 15:13 | XMS_ITS | Clinical Summary ---
Author Organization [facility] Address [address] [facility] [place] [address] Care Team Providers Care Federal District Law Clerk Name Role Phone Heber Calderon MD Primary Care Provider [phone] Source Comments [facility],non-owned Affiliates and Associated Physician Practices is amultiple site organization consisting of ambulatory clinics and hospital sitesin [place], [place], [place] and [place]. This disclosure is being madepursuant to the Care Everywhere program and may not contain all information available regarding this patient. 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
--- OUTSIDE RECORDS SUMMARY | 2024-10-04 15:13 | XMS_ITS | Encounter Summary ---
Author Organization [facility] Address [address] [place] [address] Care Team Providers Care Cloth Bin Packer Name Role Phone Heber Calderon MD Primary Care Provider [phone] Encounter Details Date Type Department Care Team (Late st Contact Info) Description 12/13/2023 Lab Requisition [facility] - DermPath Lab [address] [place] [phone] Eusebio De Leon MD [facility] DERMATOLOGY [address] [place] [phone] Neoplasm of uncertain behavior of skin Social History Tobacco Use Types Packs/Day Years Used Date Smoking Tobacco: Never Assessed Sex and Gender Information Value Date Recorded Sex Assigned at Not on file 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 Gender Identity Not on file Sexual Orientation Not on file documented as of this encounter Plan of Treatment Not on file documented as of this encounter Procedures Procedure Name Priority Date/Time Associated Diagnosis Comments DERMATOPATHOLOGY Routine 12/13/2023 12:0 0 AM CDT Neoplasm of uncertain behavior of skin documented in this encounter Results * DERMATOPATHOLOGY (12/13/2023 12:00 AM CDT) Case Report Dermatopathology Report Case: [id number] Authorizing Provider: Eusebio De Leon MD Collected: 12/13/2023 12:00 AM Ordering Location: [facility] Physician [facility] - Received: 12/16/2023 01:40 PM DermPath Lab [...] 6x5x1 mm. Jar 0. 4 4:32 PM CDT DERMATOPATHOLOGY LABORATORY Microscopic Description Specimen A. SKIN, left medial trapezial neck: Sections reveal parakeratosis, acanthosis and keratinocyte dysmaturation which is most prominent in the lower epidermis. Focal nests are present in the dermis. 4 4:32 PM CDT DERMATOPATHOLOGY LABORATORY Disclaimer An external and internal positive and negative controls are appropriate for the histochemical, immunohistochemical and immunofluorescence stain(s) in this case (if any), except where stated explicitly. The performance characteristics of the stain(s) cited in this report were developed and its performance characteristic determined by the Dermatopathology Laboratory at [facility], directed by Dr. Janett Hurst. These tests need not be, and therefore are not, approved by the [place] Food and Drug Administration. The tests are used for clinical purposes. Billing Codes Specimen Charges Stain Charges 07324 1 4 4:32 PM CDT DERMATOPATHOLOGY LABORATORY Embedded Images 4 4:32 PM CDT DERMATOPATHOLOGY LABORATORY Pathology/Cytolog y TISSUE SPECIMEN FROM SKIN / Unknown 12/13/2023 12/16/2023 1:40 PM CDT us Eusebio De Leon MD LAB - PATHOLOGY/CYTOLOGY ORDE LINDA Final Result DERMATOPATHOLOGY LABORATORY [facility] - Department of Dermatology [address], [address] [phone] documented in this encounter Visit Diagnoses Diagnosis Neoplasm of uncertain behavior of skin documented in this encounter Care Teams Cloth Bin Packer Relationship Specialty Start Date End Date Heber Calderon MD [address] [place] [phone] PCP - General 10/14/10 documented as of this encounter
--- OUTSIDE RECORDS SUMMARY | 2024-10-04 15:13 | XMS_ITS | Encounter Summary ---
Author Organization [facility] Address [address] [facility] [place] [address] Care Team Providers Care Dsp Engineer Name Role Phone Heber Calderon MD Primary Care Provider [phone] Encounter Details Date Type Department Care Team (Late st Contact Info) Description 04/03/2024 Lab Requisition [facility] - DermPath Lab [address] [place] [phone] Chey Lin PA-C [address] [place] [address] Neoplasm of uncertain behavior of skin Social History Tobacco Use Types Packs/Day Years Used Date Smoking Tobacco: Never Assessed Sex and Gender Information Value Date Recorded Sex Assigned at Not on file 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 Sex Male 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 ANALYST Gender Identity Not on file Sexual Orientation Not on file documented as of this encounter Plan of Treatment Not on file documented as of this encounter Procedures Procedure Name Priority Date/Time Associated Diagnosis Comments DERMATOPATHOLOGY Routine 04/03/2024 3:33 AM RECORD SYSTEMS ANALYST Neoplasm of uncertain behavior of skin documented in this encounter Results * DERMATOPATHOLOGY (04/03/2024 3:33 AM RECORD SYSTEMS ANALYST) Case Report Dermatopathology Report Case: [id number] Authorizing Provider: Chey Lin PA-C Collected: 04/03/2024 03:33 AM Ordering Location: [facility] Physician [facility] - Received: 04/04/2024 01:30 PM DermPath Lab Pathologist: Gladys Palmer MD Specimens: A) - Skin, left forearm B) - Skin, left chest 2:14 PM [facility] DERMATOPATHOLOGY LABORATORY Final Diagnosis Specimen A. SKIN, left forearm: SQUAMOUS CELL CARCINOMA IN SITU, PRESENT AT THE BASE OF THE SPECIMEN (D04.62) (see microscopic description and comment) OVERLYING CUTANEOUS HORN (L85.8) Specimen B. SKIN, left chest: INTRADERMAL MELANOCYTIC NEVUS (D22.5) 4 2:14 PM [facility] DERMATOPATHOLOGY LABORATORY Clinical History A: SCC in SITU B: BCC 2:14 PM [facility] DERMATOPATHOLOGY LABORATORY Gross Description Specimen A: Received [...] measuring 4x4x1 mm. Jar 0. 2:14 PM [facility] DERMATOPATHOLOGY LABORATORY Microscopic Description Specimen A. SKIN, [...] dermis that mature with depth. 2:14 PM [facility] DERMATOPATHOLOGY LABORATORY Disclaimer An external and internal positive and negative controls are appropriate for the histochemical, immunohistochemical and immunofluorescence stain(s) in this case (if any), except where stated explicitly. The performance characteristics of the stain(s) cited in this report were developed and its performance characteristic determined by the Dermatopathology Laboratory at [facility], directed by Dr. Janett Hurst. These tests need not be, and therefore are not, approved by the [place] Food and Drug Administration. The tests are used for clinical purposes. Billing Codes Specimen Charges Stain Charges 41232 65886 1 1 2:14 PM [facility] DERMATOPATHOLOGY LABORATORY Embedded Images 2:14 PM RECORD SYSTEMS ANALYST DERMATOPATHOLOGY LABORATORY Pathology/Cytology TISSUE SPECIMEN FROM SKIN / Unknown 04/03/2024 3:33 AM RECORD SYSTEMS ANALYST 04/04/2024 1:30 PM RECORD SYSTEMS ANALYST Miscellaneous samples (specimen) TISSUE SPECIMEN FROM SKIN / Unknown 04/03/2024 3:33 AM RECORD SYSTEMS ANALYST 04/04/2024 1:30 PM RECORD SYSTEMS ANALYST Chey Lin PA-C LAB - PATHOLOGY/CYTOLOGY VEENAE LINDA Final Result DERMATOPATHOLOGY LABORATORY [facility] - Department of Dermatology [facility] Medicine [address] [place] [address], [address] [phone] documented in this encounter Visit Diagnoses Diagnosis Neoplasm of uncertain behavior of skin documented in this encounter Care Teams Dsp Engineer Relationship Specialty Start Date End Date Heber Calderon MD [address] [place] [phone] PCP - General 10/14/10 documented as of this encounter
--- OUTSIDE RECORDS SUMMARY | 2024-10-04 15:13 | XMS_ITS | Encounter Summary ---
Author Organization [facility] Address [address] [place] [address] Care Team Providers Care Machine Plate Stacker Name Role Phone Heber Calderon MD Primary Care Provider [phone] Encounter Details Date Type Department Care Team (Late st Contact Info) Description 09/30/2023 Lab Requisition [facility] - DermPath Lab [address] [place] [phone] Eusebio De Leon MD [facility] DERMATOLOGY [address] [place] [phone] Neoplasm of uncertain behavior of skin Social History Tobacco Use Types Packs/Day Years Used Date Smoking Tobacco: Never Assessed Sex and Gender Information Value Date Recorded Sex Assigned at Not on file 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 Gender Identity Not on file Sexual Orientation Not on file documented as of this encounter Plan of Treatment Not on file documented as of this encounter Procedures Procedure Name Priority Date/Time Associated Diagnosis Comments DERMATOPATHOLOGY Routine 09/30/2023 12:0 0 AM CDT Neoplasm of uncertain behavior of skin documented in this encounter Results * DERMATOPATHOLOGY (09/30/2023 12:00 AM CDT) Case Report Dermatopathology Report Case: [id number] Authorizing Provider: Eusebio De Leon MD Collected: 09/30/2023 12:00 AM Ordering Location: [facility] - Received: 10/01/2023 02:15 PM DermPath Lab Pathologist: Little Hassan MD Specimens: A) - Skin, left central malar cheek B) - Skin, right medial trapezial neck 4:49 PM [facility] DERMATOPATHOLOGY LABORATORY Final Diagnosis Specimen A. SKIN, left central malar cheek: SQUAMOUS CELL CARCINOMA, WELL DIFFERENTIATED (C44.329) Specimen B. SKIN, right medial trapezial neck: SQUAMOUS CELL CARCINOMA IN SITU, PRESENT AT THE BASE OF THE SPECIMEN (D04.4) (see microscopic description and comment) 4:49 PM [facility] DERMATOPATHOLOGY LABORATORY Clinical History A-B: SCC>. 4:49 PM [facility] DERMATOPATHOLOGY LABORATORY Gross Description Specimen A: [...] measuring 5x3x2 mm. Jar 0. 4:49 PM [facility] DERMATOPATHOLOGY LABORATORY Microscopic Description Specimen A. [...] carcinoma cannot be ruled out. 4:49 PM [facility] DERMATOPATHOLOGY LABORATORY Disclaimer An external and internal positive and negative controls are appropriate for the histochemical, immunohistochemical and immunofluorescence stain(s) in this case (if any), except where stated explicitly. The performance characteristics of the stain(s) cited in this report were developed and its performance characteristic determined by the Dermatopathology Laboratory at [facility], directed by Dr. Janett Hurst. These tests need not be, and therefore are not, approved by the [place] Food and Drug Administration. The tests are used for clinical purposes. Billing Codes Specimen Charges Stain Charges 41996 43286 1 1 4 4:49 PM CDT DERMATOPATHOLOGY LABORATORY Embedded Images 4 4:49 PM CDT DERMATOPATHOLOGY LABORATORY Pathology/Cytology TISSUE SPECIMEN FROM SKIN / Unknown 09/30/2023 10/01/2023 2:15 PM CDT Miscellaneous samples (specimen) TISSUE SPECIMEN FROM SKIN / Unknown 09/30/2023 10/01/2023 2:15 PM CDT us Eusebio De Leon MD LAB - PATHOLOGY/CYTOLOGY VEENAE LINDA Final Result DERMATOPATHOLOGY LABORATORY [facility] - Department of Dermatology [address], [address] [phone] documented in this encounter Visit Diagnoses Diagnosis Neoplasm of uncertain behavior of skin documented in this encounter Care Teams Machine Plate Stacker Relationship Specialty Start Date End Date Heber Calderon MD [address] [place] [phone] PCP - General 10/14/10 documented as of this encounter
--- OUTSIDE RECORDS SUMMARY | 2024-10-04 15:13 | XMS_ITS | Encounter Summary ---
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, including shoulder Social History Tobacco Use Types Packs/Day Years Used Date Smoking Tobacco: Never Assessed Sex and Gender Information Value Date Recorded Sex Assigned at Not on file 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 Gender Identity Not on file Sexual Orientation Not on file documented as of this encounter Plan of Treatment Not on file documented as of this encounter Procedures Procedure Name Priority Date/Time Associated Diagnosis Comments DERMATOPATHOLOGY Routine 05/05/2024 12:0 0 AM WEB PRODUCTION ARTIST 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 SKIN, left forearm: DERMAL SCAR RESIDUAL SQUAMOUS CELL CARCINOMA NOT IDENTIFIED (L90.5) 2:04 PM [facility] DERMATOPATHOLOGY LABORATORY Clinical History SCC in SITU Please check margins 2:04 PM [facility] DERMATOPATHOLOGY LABORATORY Gross Description Specimen A: Received is one formalin filled container labeled with the patient's name and designated left forearm. The specimen consists of a non-oriented ellipse of skin measuring 10p71b9 mm. The epidermal surface is unremarkable. The margin is inked green. The 12 o'clock and 6 o'clock tips are submitted in cassette 1. The remainder of the ellipse is serially sectioned and submitted in cassette 2. Jar 0. 2:04 PM [facility] DERMATOPATHOLOGY LABORATORY Microscopic Description Specimen A. SKIN, left forearm: There are fibroblasts and collagen bundles oriented parallel to the skin surface. There are elongated blood vessels, some of which are oriented perpendicular to the skin surface. No residual squamous cell carcinoma is identified. 2:04 PM [facility] DERMATOPATHOLOGY LABORATORY Disclaimer An external and internal positive and negative controls are appropriate for the histochemical, immunohistochemical and immunofluorescence stain(s) in this case (if any), except where stated explicitly. The performance characteristics of the stain(s) cited in this report were developed and its performance characteristic determined by the Dermatopathology Laboratory at [facility], directed by Dr. Janett Hurst. These tests need not be, and therefore are not, approved by the [place] Food and Drug Administration. The tests are used for clinical purposes. Billing Codes Specimen Charges Stain Charges 22952 1 2:04 PM [facility] DERMATOPATHOLOGY LABORATORY Embedded Images 2:04 PM [facility] DERMATOPATHOLOGY LABORATORY Pathology/Cytolog y TISSUE SPECIMEN FROM SKIN / Unknown 05/05/2024 05/08/2024 1:24 PM [facility] us Yanet Guzman MD LAB - PATHOLOGY/CYTOLOGY ORDERAB LES Final Result DERMATOPATHOLOGY LABORATORY [facility] - Department of Dermatology [facility] Specialized Medicine 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
[2024-10-04 20:03] LABS: Anion Gap 7 mmol/L (4-12); Blood Urea Nitrogen 30 mg/dL (9-20); Calcium 9.5 mg/dL (8.4-10.2); Carbon Dioxide 26 mmol/L (22-30); Chloride 103 mmol/L (98-107); Estimated Glomerular Filt Rate > 60; Glucose 122 mg/dL (65-110); Potassium 5.8 mmol/L (3.4-5.0); Sodium 136 mmol/L (137-145)
== END 2024-10-04 15:12 | disposition home or self-care (01) ==
LOC: ANHGOSHLAB 15:12
PROVIDERS: PCP Family Medicine; Visit Provider Family Medicine
DX: N28.9 Disorder of kidney and ureter, unspecified (principal)
CPT/HCPCS: 36415; 80048

== ENCOUNTER 2024-10-26 12:52 | Outpatient (CLI) | payer MEDICARE, SELFPAY ==
--- OUTSIDE RECORDS SUMMARY | 2024-10-26 13:00 | XMS_ITS | Clinical Summary ---
Author Organization [facility] Address [address] [facility] [place] [address] Care Team Providers Care Charter Coordinator Name Role Phone Heber Calderon MD Primary Care Provider [phone] Source Comments [facility] [employer],non-owned Affiliates and Associated Physician Practices is amultiple site organization consisting of ambulatory clinics and hospital sitesin [place], [place] and [place]. This disclosure is being madepursuant to the Care Everywhere program and may not contain all information available regarding this patient. 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
--- OUTSIDE RECORDS SUMMARY | 2024-10-26 13:00 | XMS_ITS | Encounter Summary ---
Author Organization [facility] Address [address] [facility] [place] [address] Care Team Providers Care Warp Tension Tester Name Role Phone Heber Calderon MD Primary Care Provider [phone] Encounter Details Date Type Department Care Team (Late st Contact Info) Description 04/03/2024 Lab Requisition [facility] - DermPath Lab [address] [place] [phone] Chey Lin PA-C [address] [place] [address] Neoplasm of uncertain behavior of skin Social History Tobacco Use Types Packs/Day Years Used Date Smoking Tobacco: Never Assessed Sex and Gender Information Value Date Recorded Sex Assigned at Not on file 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 Gender Identity Not on file Sexual Orientation Not on file documented as of this encounter Plan of Treatment Not on file documented as of this encounter Procedures Procedure Name Priority Date/Time Associated Diagnosis Comments DERMATOPATHOLOGY Routine 04/03/2024 3:33 AM EXTENSION DIVISION DIRECTOR Neoplasm of uncertain behavior of skin documented in this encounter Results * DERMATOPATHOLOGY (04/03/2024 3:33 AM EXTENSION DIVISION DIRECTOR) Case Report Dermatopathology Report Case: [id number] Authorizing Provider: Chey Lin PA-C Collected: 04/03/2024 03:33 AM Ordering Location: [facility] - Received: 04/04/2024 01:30 PM DermPath Lab Pathologist: Gladys Palmer MD Specimens: A) - Skin, left forearm B) - Skin, left chest 2:14 PM [facility] DERMATOPATHOLOGY [facility]ORATORY Final Diagnosis Specimen A. SKIN, left forearm: SQUAMOUS CELL CARCINOMA IN SITU, PRESENT AT THE BASE OF THE SPECIMEN (D04.62) (see microscopic description and comment) OVERLYING CUTANEOUS HORN (L85.8) Specimen B. SKIN, left chest: INTRADERMAL MELANOCYTIC NEVUS (D22.5) 2:14 PM [facility] DERMATOPATHOLOGY LABORATORY at 1414 EXTENSION DIVISION DIRECTOR Clinical History A: SCC in SITU B: BCC 2:14 PM [facility] DERMATOPATH[facility] Gross Description [...] measuring 4x4x1 mm. Jar 0. 2:14 PM [facility] DERMATOPATH[facility] Microscopic Description [...] dermis that mature with depth. 2:14 PM [facility]ERMAT[facility] Disclaimer An external and internal positive and negative controls are appropriate for the histochemical, immunohistochemical and immunofluorescence stain(s) in this case (if any), except where stated explicitly. The performance characteristics of the stain(s) cited in this report were developed and its performance characteristic determined by the Dermatopathology Laboratory at [facility], directed by Dr. Janett Hurst. These tests need not be, and therefore are not, approved by the [place] Food and Drug Administration. The tests are used for clinical purposes. Billing Codes Specimen Charges Stain Charges 52167 02618 1 1 2:14 PM [facility] Embedded Images 2:14 PM EXTENSION DIVISION DIRECTOR DERMATOPATHOLOGY LABORATORY Pathology/Cytology TISSUE SPECIMEN FROM SKIN / Unknown 04/03/2024 3:33 AM EXTENSION DIVISION DIRECTOR 04/04/2024 1:30 PM EXTENSION DIVISION DIRECTOR Miscellaneous samples (specimen) TISSUE SPECIMEN FROM SKIN / Unknown 04/03/2024 3:33 AM EXTENSION DIVISION DIRECTOR 04/04/2024 1:30 PM EXTENSION DIVISION DIRECTOR Chey Lin PA-C LAB - PATHOLOGY/CYTOLOGY WARD MCKEON Final Result DERMATOPATHOLOGY LABORATORY [facility] - Department of Dermatology [facility] Medicine [address] [place] [address], [address] [phone] documented in this encounter Visit Diagnoses Diagnosis Neoplasm of uncertain behavior of skin documented in this encounter Care Teams Warp Tension Tester Relationship Specialty Start Date End Date Heber Calderon MD [address] [place] [address] PCP - General 10/14/10 documented as of this encounter
--- OUTSIDE RECORDS SUMMARY | 2024-10-26 13:00 | XMS_ITS | Encounter Summary ---
Author Organization [facility] Address [address] [facility] [place] [address] Care Team Providers Care General Assembler Name Role Phone Heber Calderon MD Primary Care Provider [phone] Encounter Details Date Type Department Care Team (Late st Contact Info) Description 03/14/2024 Lab Requisition [facility] - DermPath Lab [address] [facility] [place] [phone] Eusebio De Leon MD [facility] DERMATOLOGY [address] [place] [phone] Squamous cell carcinoma of skin of scalp and neck Social History Tobacco Use Types Packs/Day Years Used Date Smoking Tobacco: Never Assessed Sex and Gender Information Value Date Recorded Sex Assigned at Not on file 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 SKIN, left medial trapezial neck: DERMAL SCAR RESIDUAL SQUAMOUS CELL CARCINOMA NOT IDENTIFIED (L90.5) 1:53 PM CDT DERMATOPATHOLOGY LABORATORY at 1353 CDT Clinical History SCC Please check margins 1:53 PM CDT DERMATOPATHOLOGY LABORATORY Gross Description Specimen A: Received is one formalin filled container labeled with the patient's name and designated left medial trapezial neck. The specimen consists of a non-oriented ellipse of skin measuring 22w46c7 mm. The epidermal surface is unremarkable. The [...] determined by the Dermatopathology Laboratory at [facility], directed by Dr. Janett Hurst. These tests need not be, and therefore are not, approved by the [place] Food and Drug Administration. The tests are used for clinical purposes. Billing Codes Specimen Charges Stain Charges 24809 1 1:53 PM CDT DERMATOPATHOLOGY LABORATORY Embedded Images 1:53 PM CDT DERMATOPATHOLOGY LABORATORY Pathology/Cytolog y TISSUE SPECIMEN FROM SKIN / Unknown 03/14/2024 03/15/2024 11:23 AM CDT Eusebio De Leon MD LAB - PATHOLOGY/CYTOLOGY WARD OBDULIOJAYESH Final Result DERMATOPATHOLOGY LABORATORY [facility] - Department of Dermatology [address], [address] [phone] documented in this encounter Visit Diagnoses Diagnosis Squamous cell carcinoma of skin of scalp and neck Squamous cell carcinoma of scalp and skin of neck documented in this encounter Care Teams General Assembler Relationship Specialty Start Date End Date Heber Calderon MD [address] [place] [phone] PCP - General 10/14/10 documented as of this encounter
--- OUTSIDE RECORDS SUMMARY | 2024-10-26 13:00 | XMS_ITS | Encounter Summary ---
Author Organization [facility] Address [address] [facility] [place] [address] Care Team Providers Care Unit Assistant Name Role Phone Heber Calderon MD Primary Care Provider [phone] Encounter Details Date Type Department Care Team (Late st Contact Info) Description 12/13/[address] 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 Physician [facility] - Received: 12/16/2023 01:40 PM DermPath Lab Pathologist: Lizzie Hurst MD Specimen: Skin, left medial trapezial neck 4 4:32 PM CDT DERMATOPATHOLOGY LABORATORY Final Diagnosis Specimen A. SKIN, left medial trapezial neck: SUPERFICIAL (FOCALLY INVASIVE) SQUAMOUS CELL CARCINOMA ARISING IN A HYPERTROPHIC ACTINIC KERATOSIS (C44.42) 4 4:32 PM CDT DERMATOPATHOLOGY LABORATORY at 1632 CDT Clinical History BCC 4 4:32 PM CDT [...] determined by the Dermatopathology Laboratory at [facility], directed by Dr. Janett Hurst. These tests need not be, and therefore are not, approved by the [place] Food and Drug Administration. The tests are used for clinical purposes. Billing Codes Specimen Charges Stain Charges 61735 1 4 4:32 PM CDT DERMATOPATHOLOGY LABORATORY Embedded Images 4 4:32 PM CDT DERMATOPATHOLOGY LABORATORY Pathology/Cytolog y TISSUE SPECIMEN FROM SKIN / Unknown 12/13/2023 12/16/2023 1:40 PM CDT us Eusebio De Leon MD LAB - PATHOLOGY/CYTOLOGY ORDE LINDA Final Result DERMATOPATHOLOGY LABORATORY [facility] - Department of Dermatology [address], [address] [phone] documented in this encounter Visit Diagnoses Diagnosis Neoplasm of uncertain behavior of skin documented in this encounter Care Teams Unit Assistant Relationship Specialty Start Date End Date Heber Calderon MD [address] [place] [phone] PCP - General 10/14/10 documented as of this encounter
--- OUTSIDE RECORDS SUMMARY | 2024-10-26 13:00 | XMS_ITS | Encounter Summary ---
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, including shoulder Social History Tobacco Use Types Packs/Day Years Used Date Smoking Tobacco: Never Assessed Sex and Gender Information Value Date Recorded Sex Assigned at Not on file 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 Gender Identity Not on file Sexual Orientation Not on file documented as of this encounter Plan of Treatment Not on file documented as of this encounter Procedures Procedure Name Priority Date/Time Associated Diagnosis Comments DERMATOPATHOLOGY Routine 05/05/2024 12:0 0 AM TOLL TEST DESK WORKER 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 - Received: 05/08/2024 01:24 PM DermPath Lab Pathologist: Natali Chiu MD Specimen: Skin, left forearm 2:04 PM [facility] DERMATOPATHOLOGY LABORATORY Final Diagnosis Specimen A. SKIN, left forearm: DERMAL SCAR RESIDUAL SQUAMOUS CELL CARCINOMA NOT IDENTIFIED (L90.5) 2:04 PM [facility] DERMATOPATHOLOGY LABORATORY at 1404 TOLL TEST DESK WORKER Clinical History SCC in SITU Please check margins 2:04 PM [facility] DERMATOPATHOLOGY LABORATORY Gross Description Specimen A: Received is one formalin filled container labeled with the patient's name and designated left forearm. The specimen consists of a non-oriented ellipse of skin measuring 08p00x8 mm. The epidermal surface is unremarkable. The margin is inked green. The 12 o'clock and 6 o'clock tips are submitted in cassette 1. The remainder of the ellipse is serially sectioned and submitted in cassette 2. Jar 0. 2:04 PM [facility] DERMATOPATHOLOGY LABORATORY Microscopic Description Specimen A. SKIN, left forearm: There are fibroblasts and collagen bundles oriented parallel to the skin surface. There are elongated blood vessels, some of which are oriented perpendicular to the skin surface. No residual squamous cell carcinoma is identified. 2:04 PM [facility] DERMATOPATHOLOGY LABORATORY Disclaimer An external and internal positive and negative controls are appropriate for the histochemical, immunohistochemical and immunofluorescence stain(s) in this case (if any), except where stated explicitly. The performance characteristics of the stain(s) cited in this report were developed and its performance characteristic determined by the Dermatopathology Laboratory at [facility], directed by Dr. Janett Hurst. These tests need not be, and therefore are not, approved by the [place] Food and Drug Administration. The tests are used for clinical purposes. Billing Codes Specimen Charges Stain Charges 69868 1 2:04 PM [facility] DERMATOPATHOLOGY LABORATORY Embedded Images 2:04 PM [facility] DERMATOPATHOLOGY LABORATORY Pathology/Cytolog y TISSUE SPECIMEN FROM SKIN / Unknown 05/05/2024 05/08/2024 1:24 PM [facility] us Yanet Guzman MD LAB - PATHOLOGY/CYTOLOGY ORDERAB LES Final Result DERMATOPATHOLOGY LABORATORY [facility] - Department of Dermatology [facility] Specialized Medicine [address] [facility], [address]rd Floor [address] [phone] documented in this encounter Visit Diagnoses Diagnosis 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
--- OUTSIDE RECORDS SUMMARY | 2024-10-26 13:00 | XMS_ITS | Encounter Summary ---
Author Organization [facility] Address [address] [facility] [place] [address] Care Team Providers Care Doctor Of Podiatric Medicine Name Role Phone Heber Calderon MD Primary Care Provider [phone] Encounter Details Date Type Department Care Team (Late st Contact Info) Description 09/30/2023 Lab Requisition [facility] - DermPath Lab [address] [place] [phone] Eusebio De Leon MD [facility] DERMATOLOGY [address] [place] [phone] Neoplasm of uncertain behavior of skin Social History Tobacco Use Types Packs/Day Years Used Date Smoking Tobacco: Never Assessed Sex and Gender Information Value Date Recorded Sex Assigned at Not on file 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 Gender Identity Not on file Sexual Orientation Not on file documented as of this encounter Plan of Treatment Not on file documented as of this encounter Procedures Procedure Name Priority Date/Time Associated Diagnosis Comments DERMATOPATHOLOGY Routine 09/30/2023 12:0 0 AM CDT Neoplasm of uncertain behavior of skin documented in this encounter Results * DERMATOPATHOLOGY (09/30/2023 12:00 AM CDT) Case Report Dermatopathology Report Case: [id number] Authorizing Provider: Eusebio De Leon MD Collected: 09/30/2023 12:00 AM Ordering Location: [facility] - Received: 10/01/2023 02:15 PM DermPath Lab Pathologist: Little Hassan MD Specimens: A) - Skin, left central malar cheek B) - Skin, right medial trapezial neck 4:49 PM T DERMATOPATHOLOGY LABORATORY Final Diagnosis Specimen A. SKIN, left central malar cheek: SQUAMOUS CELL CARCINOMA, WELL DIFFERENTIATED (C44.329) Specimen B. SKIN, right medial trapezial neck: SQUAMOUS CELL CARCINOMA IN SITU, PRESENT AT THE BASE OF THE SPECIMEN (D04.4) (see microscopic description and comment) 4:49 PM T DERMATOPATHOLOGY LABORATORY at 1649 CDT Clinical History A-B: SCC>. 4:49 PM [facility] DERMATOPATHOLOGY LABORATORY Gross Description Specimen [...] measuring 5x3x2 mm. Jar 0. 4:49 PM [facility] DERMATOPATHOLOGY LABORATORY Microscopic Description Specimen [...] carcinoma cannot be ruled out. 4:49 PM T DERMATOPATHOLOGY LABORATORY Disclaimer An external and internal positive and negative controls are appropriate for the histochemical, immunohistochemical and immunofluorescence stain(s) in this case (if any), except where stated explicitly. The performance characteristics of the stain(s) cited in this report were developed and its performance characteristic determined by the Dermatopathology Laboratory at [facility], directed by Dr. Janett Hurst. These tests need not be, and therefore are not, approved by the [place] Food and Drug Administration. The tests are used for clinical purposes. Billing Codes Specimen Charges Stain Charges 65495 10759 1 1 4 4:49 PM CDT DERMATOPATHOLOGY LABORATORY Embedded Images 4 4:49 PM CDT DERMATOPATHOLOGY LABORATORY Pathology/Cytology TISSUE SPECIMEN FROM SKIN / Unknown 09/30/2023 10/01/2023 2:15 PM CDT Miscellaneous samples (specimen) TISSUE SPECIMEN FROM SKIN / Unknown 09/30/2023 10/01/2023 2:15 PM CDT us Eusebio De Leon MD LAB - PATHOLOGY/CYTOLOGY VEENAE LINDA Final Result DERMATOPATHOLOGY LABORATORY [facility] - Department of Dermatology [address], [address] [phone] documented in this encounter Visit Diagnoses Diagnosis Neoplasm of uncertain behavior of skin documented in this encounter Care Teams Doctor Of Podiatric Medicine Relationship Specialty Start Date End Date Heber Calderon MD [address] [place] [phone] PCP - General 10/14/10 documented as of this encounter
== END 2024-10-26 12:53 | disposition home or self-care (01) ==
LOC: ANHAUDASC 12:53
PROVIDERS: PCP Family Medicine; Visit Provider Family Medicine
DX: E11.9 Type 2 diabetes mellitus without complications (principal); I10 Essential (primary) hypertension; E78.5 Hyperlipidemia, unspecified; H91.90 Unspecified hearing loss, unspecified ear; Z98.890 Other specified postprocedural states; N28.9 Disorder of kidney and ureter, unspecified
CPT/HCPCS: 92557; 92567

== ENCOUNTER 2025-03-12 12:54 | Outpatient (CLI) | payer MEDICARE, SELFPAY ==
--- NOTE | ~2025-03-12 | CT_ITS ---
EXAMINATION:CT lung screening DATE: 03/12/2025 13:08 INDICATION: Personal history of nicotine dependence. TECHNIQUE: Computed tomography (CT) of the chest was performed without intravenous contrast. Automated exposure control and iterative reconstruction technique were employed. The dose-length product (DLP) was 79.27 mGy-cm. COMPARISON: Chest CT 03/05/2023 FINDINGS: There is mild emphysema. 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 No pleural effusion. The heart size is normal. There are coronary artery calcifications. No pericardial effusion. There is a small sliding hiatal hernia. There is bilateral gynecomastia. There is moderate thoracic spondylosis. IMPRESSION: 1. Lung-RADS category 1: Negative. Continue annual screening with noncontrast low-dose chest CT in 12 months. Reviewed, dictated and finalized at location E. IMPRESSION: 1. Lung-RADS category 1: Negative. Continue annual screening with noncontrast l ow-dose chest CT in 12 months.
== END 2025-03-12 12:55 | disposition home or self-care (01) ==
LOC: MICIMG 12:55
PROVIDERS: PCP Family Medicine; Visit Provider Family Medicine
DX: Z12.2 Encounter for screening for malignant neoplasm of respiratory organs (principal); Z87.891 Personal history of nicotine dependence
CPT/HCPCS: 71271